=== PATIENT | female | born 1990 | race African-American/Black ===

== ENCOUNTER 2018-06-15 17:00 | Emergency (ER) | payer SELFPAY ==
[2018-06-15 17:18] VITALS: BP 145/80
--- NOTE | 2018-06-15 17:55 | EDM.PDOC ---
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 Patient is . Patient's menstrual cycle started on 06/02, prior to this her last period was on 05/08. Her menstrual periods typically last 7-8 days, this period has lasted 14 days. She has had more clots than usual with this period. She describes the blood as bright red with dark red clots. She has had a lot of pain with this period, whereas she typically does not experience cramping with her periods. She describes the pain as cramping, sharp, 8/10, and primarily on the right side. Patient has tried taking tylenol, ibuprofen, and pamprin but none of these have helped. Nothing improves or worsens the pain. Associated symptoms include back pain. Patient last had sexual intercourse a few days before her menstrual cycle started. They used a condom, but it broke. Patient denies weakness, nausea, vomiting, or syncope. 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, NSAIDS Lower Back Pain Score (Numeric/FACES): 8 - Related Data Allergies Allergy/AdvReac Type Severity Reaction Status Date / Time No Known Allergies Allergy Verified 06/15/18 17:09 Home Meds: Home Meds Ferrous Sulfate 325 mg PO DAILY #30 tablet 06/15/18 [Rx] medroxyPROGESTERone [Provera] 10 mg PO BID #10 tab 06/15/18 [Rx] Past Medical History - Past Health History Medical/Surgical History: Denies Medical/Surgical History 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: Reports: Fibroids, 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: Musculoskeletal History: Reports: Back Pain, Chronic Social & Family History - Family History Family Medical History: Noncontributory Cardiac: Reports: Hypertension OBGYN: Reports: Dysfunctional uterine bleeding Endocrine/Metabolic: Reports: Diabetes, type II Oncologic: Reports: Breast - Tobacco Use Smoking Status *Q: Current Every Day Smoker Years of Tobacco use: 4 Packs/Tins Daily: 0.2 - Caffeine Use Caffeine Use: Reports: Soda - Recreational Drug Use Recreational Drug Use: No ED ROS GENERAL - Review of Systems Review Of Systems: See Below Constitutional: Reports: No Symptoms Respiratory: Reports: No Symptoms Cardiovascular: Reports: No Symptoms GI/Abdominal: Reports: Abdominal Pain (RUQ/RLQ pain) : Reports: Pain. Denies: Frequency, Urgency Musculoskeletal: Reports: Back Pain Neurological: Denies: Confusion, Dizziness, Syncope ED EXAM, GI/ABD - Physical Exam Exam: See Below Exam Limited By: No Limitations General Appearance: Alert, WD/WN, No Apparent Distress Respiratory/Chest: No Respiratory Distress, Lungs Clear, Normal Breath Sounds, No Accessory Muscle Use, Chest Non-Tender Cardiovascular: Normal Peripheral Pulses, Regular Rate, Rhythm, No Edema, No Gallop, No Murmur, No Rub GI/Abdominal Exam: Normal Bowel Sounds, Soft, Non-Tender, No Distention. No: Guarding, Rigid, Rebound Course - Vital Signs Last Recorded V/S: Last Vital Signs Temp 97.2 F 06/15/18 17:09 Pulse 102 H 06/15/18 17:09 Resp 18 06/15/18 17:09 BP 145/80 H 06/15/18 17:09 Pulse Ox 99 06/15/18 17:09 Orthostatic Blood Pressure [ 136/95 Standing] Orthostatic Blood Pressure [ 144/93 Sitting] Orthostatic Blood Pressure [ 142/82 Supine] - Orders/Labs/Meds Labs: Laboratory Tests 06/15/18 06/15/18 06/15/18 Range/Units 17:45 17:53 17:53 WBC 10.35 H (3.98-10.04) K/mm3 RBC 4.78 (3.98-5.22) M/mm3 Hgb 11.0 L (11.2-15.7) gm/L Hct 34.7 (34.1-44.9) % MCV 72.6 L (79.4-94.8) fl MCH 23.0 L (25.6-32.2) pg MCHC 31.7 L (32.2-35.5) g/dl RDW Std Deviation 47.7 H (36.4-46.3) fL Plt Count 421 H (182-369) K/mm3 MPV 9.6 (9.4-12.3) fl Neutrophils % (Manual) 48 (40-60) % Band Neutrophils % 0 (0-10) % Lymphocytes % (Manual) 48 H (20-40) % Atypical Lymphs % 0 % Monocytes % (Manual) 3 (2-10) % Eosinophils % (Manual) 1 (0.7-5.8) % Basophils % (Manual) 0 L (0.1-1.2) Platelet Estimate Adequate Plt Morphology Comment Normal Anisocytosis 1+ slight Microcytosis 2+ moderate RBC Morph Comment Not Reportable HCG, Qual Negative (NEGATIVE) Urine Color Dark yellow (Yellow) Urine Appearance Cloudy H (Clear) Urine pH 6.0 (5.0-8.0) Ur Specific [place] > or = 1.030 (1.005-1.030) Urine Protein 2+ H (Negative) Urine Glucose (UA) Negative (Negative) Urine Ketones Trace H (Negative) Urine Occult Blood 3+ H (Negative) Urine Nitrite Negative (Negative) Urine Bilirubin 1+ H (Negative) Urine Urobilinogen 0.2 (0.2-1.0) Ur Leukocyte Esterase Negative (Negative) Urine RBC >100 H (0-5) /hpf Urine WBC 0-5 (0-5) /hpf Ur Epithelial Cells 0-5 (0-5) /hpf Urine Bacteria Not seen (FEW) /hpf Urine Mucus Not seen (FEW) /hpf Meds: Medications Discontinued Medications Generic Name Dose Route Start Last Admin Trade Name Gokul PRN Reason Stop Dose Admin Ketorolac Tromethamine 60 mg 06/15/18 18:49 06/15/18 18:57 Toradol IM 06/15/18 18:50 60 mg ONETIME ONE Administration Departure - Departure Disposition: Home, Self-Care 01 Clinical Impression: Dysfunctional uterine bleeding - Discharge Information Prescriptions: Ferrous Sulfate 325 mg PO DAILY #30 tablet medroxyPROGESTERone [Provera] 10 mg PO BID #10 tab Instructions: Dysfunctional Uterine Bleeding Referrals: PCP,None [Primary Care Provider] - Malachi Espinoza MD [Physician] - Forms: ED Department Discharge Additional Instructions: [id number] Tylenol or Motrin as needed for pain relief. He may take up to 4 g of Tylenol in 1 day. May take up to 3200 mg of ibuprofen and 1 day. Take the Provera 1 tab twice a day for 5 days. Follow-up with Dr. Espinoza, METAL FURNITURE POLISHER, within the next week for recheck of your symptoms. Further treatment to be determined by him. Call [phone] to schedule with him. Take the iron 1 tab daily. Recommend taking this with citric fruits to help with absorption or take vitamin C, available [id number]. Iron can cause constipation. Recommend MiraLAX daily or every other day for normal bowel maintenance if this becomes a problem for you. alos expect your stools to be dark or black while on iron. Please return to the ER if your symptoms change or worsen. <Eufemia Salazar - Last Filed: 06/18/18 14:09> ED HPI GENERAL MEDICAL PROBLEM - History of Present Illness INITIAL COMMENTS - FREE TEXT/NARRATIVE: I have seen the patient and agree with the HPI as documented by LILY Ziegler. ED EXAM, GI/ABD - Physical Exam (Female) Exam: Normal External Exam, Normal Speculum Exam, Vaginal Bleeding Neurological: Alert, Oriented, Normal Cognition Psychiatric: Normal Affect, Normal Mood Skin Exam: Warm, Dry, Normal Color Course - Re-Assessments/Exams Free Text/Narrative Re-Assessment/Exam: 06/15/18 18:50 I have seen the patient and agree with the HPI, ROS and PE as documented by LILY Ziegler Pelvic exam preformed by myself. Other than vaginal bleeding no other abnormalities identified. Case discussed with Dr. Espinoza, Ob eight section blower. Recommended provera 10mg bid x 10 days. He will see her in the clinic within the week to determine further management. Discussed with the patient. She is in agreement and understanding. Discharge instructions as documented. Departure - Departure Time of Disposition: 18:56 Condition: Fair - Discharge Information *PRESCRIPTION DRUG MONITORING PROGRAM REVIEWED*: No *COPY OF PRESCRIPTION DRUG MONITORING REPORT IN PATIENT MORELIA: No
[2018-06-15] MEDS ORDERED: Ketorolac 60 MG/2 ML SDV IM ONE (18:49)
== END 2018-06-15 19:18 | disposition home or self-care (01) ==
LOC: JD.ED 17:00
DX: N93.8 Other specified abnormal uterine and vaginal bleeding (principal); F17.210 Nicotine dependence, cigarettes, uncomplicated
CPT/HCPCS: 36415; 81001; 84703; 85007; 85027; 96372; 99284; J1885

== ENCOUNTER 2020-03-05 10:45 | Emergency (ER) | payer MEDICAID ==
[2020-03-05 11:03] VITALS: BP 140/95; PULSE 88
[2020-03-05] MEDS ORDERED: Ondansetron 4 MG/2 ML SDV IVPUSH ONE (11:17)
--- NOTE | 2020-03-05 11:23 | EDM.PDOC ---
ED HPI GENERAL MEDICAL PROBLEM - General Chief Complaint: Abdominal Pain Stated Complaint: ABDOMINAL PAIN/DIARRHEA Time Seen by Provider: 03/05/20 11:02 Source of Information: Reports: Patient, RN Notes Reviewed History Limitations: Reports: No Limitations - History of Present Illness INITIAL COMMENTS - FREE TEXT/NARRATIVE: Patient is a 29-year-old female who presents to the ED for the evaluation of some lower abdominal pain and diarrhea. The patient states that this started roughly 2 days ago, she has noticed 3 diarrhea type stools a day, and notes that it is quite watery. Patient states she has some hot flashes at times, but has not had a fever at home, and she remains afebrile at time of triage, her temperature is 97.2 F. The patient notes she is a diabetic, and has not been able to take her metformin in around 1 week. She states that she just refilled it the other day, and has not taken it since. She takes 1000 mg 3 times a day. The patient states that she is not having any chest pain, shortness of breath , cough, nausea or vomiting. Patient notes that the pain does come and go, she cannot really relate any modifiers to make it worse or better. Patient is not sure she can be , and states she cannot remember when her last period was, but relates she usually is regular. Patient's primary care provider is iLza Bush from [place]. 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 SCIENTIST History: Musculoskeletal History: Reports: Back Pain, Chronic Endocrine/Metabolic History: Reports: Diabetes, Type II, Obesity/BMI 30+ Hematologic History: Reports: Anemia - Infectious Disease History Infectious Disease History: Reports: Chicken Pox, Measles Social & Family History - Family History Family Medical History: Noncontributory Cardiac: Reports: Hypertension OBGYN: Reports: Dysfunctional uterine bleeding Endocrine/Metabolic: Reports: Diabetes, type II Oncologic: Reports: Breast - Tobacco Use Smoking Status *Q: Current Every Day Smoker Years of Tobacco use: 9 Packs/Tins Daily: 0.5 - Caffeine Use Caffeine Use: Reports: Soda - Living Situation & Occupation Living situation: Reports: Single, Other (with a friend) 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 Denies: Fever, Chills, Malaise, Weakness, Fatigue, Decreased Appetite, Weight Loss Respiratory: Denies: Shortness of Breath, Cough Cardiovascular: Denies: Chest Pain GI/Abdominal: Reports: Abdominal Pain (Low left abdomen pain), Diarrhea (3 watery stools/day). Denies: Nausea, Vomiting : Denies: Discharge, Dysuria, Frequency, Urgency ED EXAM, GI/ABD - Physical Exam Exam: See Below Exam Limited By: No Limitations General Appearance: Alert, WD/WN, No Apparent Distress Eyes: Bilateral: Normal Appearance Ears: Normal External Exam Nose: Normal Inspection Throat/Mouth: Normal Inspection, Normal Lips, Normal Teeth, Normal Gums, Normal Oropharynx, Normal Voice, No Airway Compromise Head: Atraumatic, Normocephalic Neck: Normal Inspection Respiratory/Chest: No Respiratory Distress, Lungs Clear, Normal Breath Sounds, No Accessory Muscle Use, Chest Non-Tender Cardiovascular: Normal Peripheral Pulses, Regular Rate, Rhythm, No Murmur GI/Abdominal Exam: Normal Bowel Sounds, Soft, Non-Tender, No Distention, No Mass Extremities: Normal Inspection, Normal Capillary Refill Neurological: Alert, Oriented, Normal Cognition, No Motor/Sensory Deficits Psychiatric: Normal Affect, Normal Mood Skin Exam: Warm, Dry, Intact, Normal Color, No Rash Course - Vital Signs Last Recorded V/S: Last Vital Signs Temp 97.2 F 03/05/20 10:59 Pulse 88 03/05/20 10:59 Resp 16 03/05/20 10:59 BP 140/95 H 03/05/20 10:59 Pulse Ox 100 03/05/20 10:59 - Orders/Labs/Meds Orders: Active Orders 24 hr Category Date Time Status Sodium Chloride 0.9% [Normal Saline] 1,000 ml Med 03/05/20 11:30 Active IV ASDIRECTED Medication Orders Sodium Chloride (Normal Saline) 1,000 mls @ 999 mls/hr IV ASDIRECTED SALLY Last Admin: 03/05/20 11:36 Dose: 999 mls/hr Labs: Laboratory Tests 03/05/20 03/05/20 03/05/20 Range/Units 11:23 11:23 11:30 WBC 9.91 (3.98-10.04) K/mm3 RBC 5.41 H (3.98-5.22) M/mm3 Hgb 12.6 (11.2-15.7) gm/dl Hct 39.9 (34.1-44.9) % MCV 73.8 L (79.4-94.8) fl MCH 23.3 L (25.6-32.2) pg MCHC 31.6 L (32.2-35.5) g/dl RDW Std Deviation 49.6 H (36.4-46.3) fL Plt Count 395 H (182-369) K/mm3 MPV 10.2 (9.4-12.3) fl Neutrophils % (Manual) 54 (40-60) % Band Neutrophils % 0 (0-10) % Lymphocytes % (Manual) 33 (20-40) % Atypical Lymphs % 0 % Monocytes % (Manual) 10 (2-10) % Eosinophils % (Manual) 3 (0.7-5.8) % Basophils % (Manual) 0 L (0.1-1.2) Nucleated RBCs 1.0 % Platelet Estimate Adequate Anisocytosis 2+ moderate Microcytosis 2+ moderate RBC Morph Comment Abnormal Sodium (136-145) mEq/L Potassium (3.5-5.1) mEq/L Chloride (98-107) mEq/L Carbon Dioxide (21-32) mEq/L Anion Gap (5-15) BUN (7-18) mg/dL Creatinine (0.55-1.02) mg/dL Est Cr Clr Drug Dosing mL/min Estimated GFR (MDRD) (>60) mL/min BUN/Creatinine Ratio (14-18) Glucose (74-106) mg/dL Calcium (8.5-10.1) mg/dL Total Bilirubin (0.2-1.0) mg/dL AST (15-37) U/L ALT (14-59) U/L Alkaline Phosphatase (46-116) U/L Total Protein (6.4-8.2) g/dl Albumin (3.4-5.0) g/dl Globulin gm/dL Albumin/Globulin Ratio (1-2) Urine Color Yellow (Yellow) Urine Appearance Clear (Clear) Urine pH 7.0 (5.0-8.0) Ur Specific [place] > or = 1.030 (1.005-1.030) Urine Protein Negative (Negative) Urine Glucose (UA) Negative (Negative) Urine Ketones Negative (Negative) Urine Occult Blood 2+ H (Negative) Urine Nitrite Negative (Negative) Urine Bilirubin Negative (Negative) Urine Urobilinogen 0.2 (0.2-1.0) Ur Leukocyte Esterase Negative (Negative) Urine RBC 0-5 (0-5) /hpf Urine WBC 0-5 (0-5) /hpf Ur Epithelial Cells 10-20 H (0-5) /hpf Urine Bacteria Few (FEW) /hpf Urine Mucus Few (FEW) /hpf Urine HCG, Qual Negative (NEGATIVE) 03/05/20 Range/Units 11:30 WBC (3.98-10.04) K/mm3 RBC (3.98-5.22) M/mm3 Hgb (11.2-15.7) gm/dl Hct (34.1-44.9) % MCV (79.4-94.8) fl MCH (25.6-32.2) pg MCHC (32.2-35.5) g/dl RDW Std Deviation (36.4-46.3) fL Plt Count (182-369) K/mm3 MPV (9.4-12.3) fl Neutrophils % (Manual) (40-60) % Band Neutrophils % (0-10) % Lymphocytes % (Manual) (20-40) % Atypical Lymphs % % Monocytes % (Manual) (2-10) % Eosinophils % (Manual) (0.7-5.8) % Basophils % (Manual) (0.1-1.2) Nucleated RBCs % Platelet Estimate Anisocytosis Microcytosis RBC Morph Comment Sodium 138 (136-145) mEq/L Potassium 4.4 (3.5-5.1) mEq/L Chloride 104 (98-107) mEq/L Carbon Dioxide 26 (21-32) mEq/L Anion Gap 12.4 (5-15) BUN 13 (7-18) mg/dL Creatinine 0.8 (0.55-1.02) mg/dL Est Cr Clr Drug Dosing 90.41 mL/min Estimated GFR (MDRD) > 60 (>60) mL/min BUN/Creatinine Ratio 16.3 (14-18) Glucose 91 (74-106) mg/dL Calcium 9.1 (8.5-10.1) mg/dL Total Bilirubin 0.2 (0.2-1.0) mg/dL AST 13 L (15-37) U/L ALT 20 (14-59) U/L Alkaline Phosphatase 66 (46-116) U/L Total Protein 7.6 (6.4-8.2) g/dl Albumin 3.0 L (3.4-5.0) g/dl Globulin 4.6 gm/dL Albumin/Globulin Ratio 0.7 L (1-2) Urine Color (Yellow) Urine Appearance (Clear) Urine pH (5.0-8.0) Ur Specific [place] (1.005-1.030) Urine Protein (Negative) Urine Glucose (UA) (Negative) Urine Ketones (Negative) Urine Occult Blood (Negative) Urine Nitrite (Negative) Urine Bilirubin (Negative) Urine Urobilinogen (0.2-1.0) Ur Leukocyte Esterase (Negative) Urine RBC (0-5) /hpf Urine WBC (0-5) /hpf Ur Epithelial Cells (0-5) /hpf Urine Bacteria (FEW) /hpf Urine Mucus (FEW) /hpf Urine HCG, Qual (NEGATIVE) Meds: Medications Generic Name Dose Route Start Last Admin Trade Name Freq PRN Reason Stop Dose Admin Sodium Chloride 1,000 mls @ 999 mls/hr 03/05/20 11:30 03/05/20 11:36 Normal Saline IV 999 mls/hr ASDIRECTED SALLY Administration Discontinued Medications Generic Name Dose Route Start Last Admin Trade Name Freq PRN Reason Stop Dose Admin Acetaminophen 650 mg 03/05/20 12:13 03/05/20 12:45 Tylenol PO 03/05/20 12:14 650 mg NOW ONE Administration Ondansetron HCl 4 mg 03/05/20 11:17 03/05/20 11:36 Zofran IVPUSH 03/05/20 11:18 4 mg ONETIME ONE Administration - Re-Assessments/Exams Free Text/Narrative Re-Assessment/Exam: 03/05/20 11:22 Patient presents to the ED for her lower abdominal pain and associated diarrhea. I have ordered some labs, and I will get flat and upright abdomens after we know that she is not . Patient will be given some IV fluids and 4 mg Zofran for initial management. 03/05/20 12:22 The labs have come back and are essentially within normal limits. The patient is not and the X-ray does appear to be within normal limits. Official radiology reading is pending. Will re-assess after the fluids and have the patient start taking her metformin as prescribed. She will likely be discharge with general recommendations. 03/05/20 12:42 X-ray has come back and nothing acute is appreciated on either film. Departure - Departure Time of Disposition: 12:42 Disposition: Home, Self-Care 01 Condition: Good Clinical Impression: Lower abdominal pain Diarrhea Qualifiers: Diarrhea type: unspecified type Qualified Code(s): R19.7 - Diarrhea, unspecified - Discharge Information *PRESCRIPTION DRUG MONITORING PROGRAM REVIEWED*: No *COPY OF PRESCRIPTION DRUG MONITORING REPORT IN PATIENT MORELIA: No Instructions: Food Choices to Help Relieve Diarrhea, Adult, Diarrhea, Adult, [id number] Referrals: Liza Bush PA-C [Primary Care Provider] - Forms: ED Department Discharge, ED Return to Work/School Form Additional Instructions: You have been evaluated in the ED for diarrhea/lower abdominal pain. Laboratory evaluation in the ED demonstrates that there are no focal or worrisome abnormalities. You have received IV fluid in the ED to help with the dehydration from the diarrhea. Over the next 24-48 hours please try to limit diet to clear liquids and advance as tolerate to a bland diet to alleviate symptoms of diarrhea. Recommend you resume taking your Metformin as previously prescribed, and follow up with your primary care provider some time this week if symptoms do not seem to improving. Please return to the ED if your symptoms should change or worsen. Sepsis Event Note - Evaluation Sepsis Screening Result: No Definite Risk - Focused Exam Vital Signs: Vital Signs Temp Pulse Resp BP Pulse Ox 03/05/20 10:59 97.2 F 88 16 140/95 H 100 Date Exam was Performed: 03/05/20 Time Exam was Performed: 13:04 - My Orders Last 24 Hours: My Active Orders 03/05/20 11:30 Sodium Chloride 0.9% [Normal Saline] 1,000 ml IV ASDIRECTED - Assessment/Plan Last 24 Hours: My Active Orders 03/05/20 11:30 Sodium Chloride 0.9% [Normal Saline] 1,000 ml IV ASDIRECTED
[2020-03-05] MEDS ORDERED: Sodium Chloride 0.9% 1,000 ML IV SCH (11:30)
[2020-03-05] MEDS ORDERED: Acetaminophen 325 MG Tab PO ONE (12:13)
--- NOTE | 2020-03-05 12:28 | CR ---
Abdomen: Supine and upright views the abdomen were obtained. Comparison: Prior abdominal x-ray of 02/27/16. Bowel gas pattern appears normal. No abnormal calcifications or soft tissue abnormality is appreciated. Bony structures are unremarkable. Impression: 1. Nothing acute is appreciated on 2 view abdominal x-ray. Diagnostic code #1 Study was dictated in MDT
== END 2020-03-05 13:06 | disposition home or self-care (01) ==
LOC: JD.ED 10:45
DX: R10.30 Lower abdominal pain, unspecified (principal); R19.7 Diarrhea, unspecified; I10 Essential (primary) hypertension; E11.9 Type 2 diabetes mellitus without complications; E66.9 Obesity, unspecified; Z68.43 Body mass index [BMI] 50.0-59.9, adult; Z79.84 Long term (current) use of oral hypoglycemic drugs
CPT/HCPCS: 36415; 74019; 80053; 81001; 81025; 85007; 85027; 96361; 96374; 99284; A9270; J2405; J7030; 99283

== ENCOUNTER 2020-04-25 01:27 | Emergency (ER) | payer MEDICAID ==
[2020-04-25 01:35] VITALS: BP 127/81; PULSE 110
[2020-04-25] MEDS ORDERED: EPINEPHrine 1 MG/ML SDV IM ONE (01:36)
[2020-04-25] MEDS ORDERED: methylPREDNISolone Sodium Succinate 125 MG/2 ML SDV IVPUSH ONE (01:41)
--- NOTE | 2020-04-25 01:41 | EDM.PDOC ---
ED HPI GENERAL MEDICAL PROBLEM - General Chief Complaint: Allergic Reaction Stated Complaint: ALLERGIC REACTION Time Seen by Provider: 04/25/20 01:32 - History of Present Illness INITIAL COMMENTS - FREE TEXT/NARRATIVE: 29-year-old female presents the emergency room with facial swelling lip swelling tongue swelling and a generalized rash. This started just after midnight and is progressively gotten worse. The patient is not aware of what she got exposed to. Patient has had 2 reactions like this in the past. Unknown what triggered these. Patient's past medical history significant for hypertension but no coronary artery disease. She has no history of angioedema. Patient states that when this worsened she had a unusual feeling in her stomach she has a hard time describing this. She has had no nausea vomiting or diarrhea - Related Data Allergies Allergy/AdvReac Type Severity Reaction Status Date / Time No Known Allergies Allergy Verified 04/25/20 01:35 Home Meds: Home Meds medroxyPROGESTERone Acetate [Depo-Provera] 150 mg IM ASDIRECTED 07/11/19 [ History] metFORMIN [Glucophage] 1,000 mg PO DAILY 07/11/19 [History] Ibuprofen 800 mg PO TID #15 tablet 10/07/19 [Rx] predniSONE [Prednisone] 40 mg PO QAM #10 tablet 04/25/20 [Rx] Past Medical History - Past Health History Medical/Surgical History: Denies Medical/Surgical History HEENT History: Reports: Otitis Media Cardiovascular History: Reports: Hypertension Respiratory History: Reports: None Gastrointestinal History: Reports: None Genitourinary History: Reports: UTI, Recurrent 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 Hematologic History: Reports: Anemia Immunologic History: Reports: None Oncologic (Cancer) History: Reports: None Dermatologic History: Reports: None - Infectious Disease History Infectious Disease History: Reports: Chicken Pox, Measles Social & Family History - Family History Family Medical History: Noncontributory Cardiac: Reports: Hypertension OBGYN: Reports: Dysfunctional uterine bleeding Endocrine/Metabolic: Reports: Diabetes, type II Oncologic: Reports: Breast - Caffeine Use Caffeine Use: Reports: Soda - Living Situation & Occupation Living situation: Reports: Single, Other (with a friend) 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 Denies: Fever, Chills HEENT: Reports: Other (Facial swelling see history of present illness) Respiratory: Reports: No Symptoms Cardiovascular: Reports: No Symptoms Endocrine: Reports: No Symptoms GI/Abdominal: Reports: Other (Shortly before arrival she had an unusual feeling in her stomach no nausea vomiting constipation or diarrhea) : Reports: No Symptoms Musculoskeletal: Reports: No Symptoms Skin: Reports: No Symptoms Neurological: Reports: No Symptoms Psychiatric: Reports: No Symptoms Immunologic: Reports: Other (She is having a reaction at this time) ED EXAM GENERAL NO PERIP PULSE - Physical Exam Exam: See Below Exam Limited By: No Limitations General Appearance: Other (The patient is having marked facial swelling lip swelling and tongue swelling, I have asked her to stick her tongue out and it is quite swollen I cannot see any of the pharynx structures) Eye Exam: Bilateral Eye: Other (Upper and lower are moderately swollen bilaterally) Ears: Hearing Grossly Normal, Normal TMs, Other (External ears quite swollen canal is minimally swollen earlobe is markedly swollen) Nose: Other (External swelling) Throat/Mouth: Other (Initially the uvula could not be visualized the tongue was markedly swollen. After single dose of epinephrine the tongue was at least half its original size uvula well seen posterior structures in the throat looked normal) Neck: Normal Inspection, Supple, Non-Tender. No: Lymphadenopathy (L), Lymphadenopathy (R) Respiratory/Chest: No Respiratory Distress, Lungs Clear, Respiratory Distress Cardiovascular: Regular Rate, Rhythm, No Edema, No Murmur GI/Abdominal: Normal Bowel Sounds, Soft, Non-Tender, Other Course - Vital Signs Last Recorded V/S: Last Vital Signs Temp 36.6 C 04/25/20 01:33 Pulse 110 H 04/25/20 01:33 Resp 16 04/25/20 01:33 BP 127/81 04/25/20 01:33 Pulse Ox 96 04/25/20 01:33 - Orders/Labs/Meds Meds: Medications Discontinued Medications Generic Name Dose Route Start Last Admin Trade Name Freq PRN Reason Stop Dose Admin Epinephrine HCl 0.5 mg 04/25/20 01:36 04/25/20 01:40 Adrenalin IM 04/25/20 01:37 0.5 mg ONETIME ONE Administration Famotidine 40 mg 04/25/20 01:43 04/25/20 01:50 Pepcid IVPUSH 04/25/20 01:44 40 mg ONETIME ONE Administration Methylprednisolone Sodium Succinate 125 mg 04/25/20 01:41 04/25/20 01:49 Solu-Medrol IVPUSH 04/25/20 01:42 125 mg ONETIME ONE Administration - Re-Assessments/Exams Free Text/Narrative Re-Assessment/Exam: 04/25/20 01:58 Initially the patient was given a round of epinephrine I did not feel she was in a true anaphylactic reaction her pulse was a little fast but she was maintaining good blood pressure however is more concerned about maintaining the upper airway. After receiving single round of epinephrine her tongue shrink considerably her tongue lips shrink considerably the posterior structures in the throat were identified and easily seen whereas prior to the epinephrine they could not be visualized. Patient has IV established at this point she is received 40 mg of IV famotidine 125 Solu-Medrol she took 50 mg of Benadryl before coming in 04/25/20 04:41 Continued observation, the patient has done very well and continued to improve she is at or near baseline at this time. We will discharge her on oral prednisone famotidine and Benadryl Departure - Departure Time of Disposition: 04:42 Disposition: Home, Self-Care 01 Clinical Impression: Allergic reaction - Discharge Information Referrals: PCP,Unknown [Ordering Only Provider] - Forms: ED Department Discharge Additional Instructions: Return to the emergency room with any questions problems or worsening symptoms. Take the prednisone as directed starting this morning when you get it filled. Start famotidine, or Pepcid, 20 mg twice daily for at least 7 days. This is lydk-usc-orygrog Use Benadryl 25 mg every 6 hours today and after today only if needed every 6 hours. Follow-up with your regular provider at [facility] in approximately 1 week and discuss the possible need for allergy testing since you have had 2 other episodes like this in the past. Sepsis Event Note - Focused Exam Vital Signs: Vital Signs Temp Pulse Resp BP Pulse Ox 04/25/20 01:33 36.6 C 110 H 16 127/81 96 Date Exam was Performed: 04/25/20 Time Exam was Performed: 04:41
[2020-04-25] MEDS ORDERED: Famotidine 20 MG/2 ML SDV IVPUSH ONE (01:43)
== END 2020-04-25 05:03 | disposition home or self-care (01) ==
LOC: JD.ED 01:27
DX: T78.40XA Allergy, unspecified, initial encounter (principal); E11.9 Type 2 diabetes mellitus without complications; I10 Essential (primary) hypertension; Z79.84 Long term (current) use of oral hypoglycemic drugs; E66.9 Obesity, unspecified; Z68.42 Body mass index [BMI] 45.0-49.9, adult
CPT/HCPCS: 96372; 96374; 96375; 99283; J0171; J2930; J3490

== ENCOUNTER 2020-10-01 13:07 | Emergency (ER) | payer MEDICAID ==
[2020-10-01 14:15] VITALS: BP 124/84; PULSE 93
--- NOTE | 2020-10-01 15:51 | EDM.PDOC ---
ED HPI GENERAL MEDICAL PROBLEM - General Chief Complaint: Headache Stated Complaint: HEAD ACHE/VAGINAL BLEEDING Time Seen by Provider: 10/01/20 14:55 Source of Information: Reports: Patient, RN Notes Reviewed History Limitations: Reports: Intoxication - History of Present Illness INITIAL COMMENTS - FREE TEXT/NARRATIVE: Patient is a 29-year-old female presenting to the emergency department with complaints of intermittent headaches over the course the last few days as well as vaginal bleeding and cramping in light of a positive test. Her last menstrual period was at the beginning of August. She states she has been having these intermittent headaches over the last few days and states that she "did not feel right" so she took a test yesterday. The result came back positive. Last evening she started having some vaginal bleeding which she describes as dark brown in color and light. She describes what looks like small blood clots in the discharge. 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 She has had some intermittent nausea but denies vomiting. Treatments LUNCH WAGON OPERATOR: Reports: Other (see below) Other Treatments LUNCH WAGON OPERATOR: tylenol Bilateral Temporal Headache Pain Score (Numeric/FACES): 6 - Related Data Allergies Allergy/AdvReac Type Severity Reaction Status Date / Time No Known Allergies Allergy Verified 04/25/20 01:35 Home Meds: Home Meds metFORMIN [Glucophage] 1,000 mg PO DAILY 07/11/19 [History] Doxepin [SINEquan] 50 mg PO BEDTIME 10/01/20 [History] Metoprolol Tartrate 25 mg PO DAILY 10/01/20 [History] Past Medical History - Past Health History Medical/Surgical History: Denies Medical/Surgical History HEENT History: Reports: Otitis Media Cardiovascular History: Reports: Hypertension Respiratory History: Reports: None Gastrointestinal History: Reports: None Genitourinary History: Reports: UTI, Recurrent PANEL FITTER History: Reports: Fibroids, Other PANEL FITTER History: Musculoskeletal History: Reports: Back Pain, Chronic Neurological History: Reports: None Psychiatric History: Reports: None Endocrine/Metabolic History: Reports: Diabetes, Type II, Obesity/BMI 30+ Other Endocrine/Metabolic History: states is "pre" diabetic. Hematologic History: Reports: Anemia Immunologic History: Reports: None Oncologic (Cancer) History: Reports: None Dermatologic History: Reports: None - Infectious Disease History Infectious Disease History: Reports: Chicken Pox, Measles Social & Family History - Family History Family Medical History: Noncontributory Cardiac: Reports: Hypertension OBGYN: Reports: Dysfunctional uterine bleeding Endocrine/Metabolic: Reports: Diabetes, type II Oncologic: Reports: Breast - Tobacco Use Tobacco Use Status *Q: Current Every Day Tobacco User Years of Tobacco use: 5 Packs/Tins Daily: 0.4 - Caffeine Use Caffeine Use: Reports: Soda, Tea - Recreational Drug Use Recreational Drug Use: No - Living Situation & Occupation Living situation: Reports: Single, Other (with a friend) 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 Denies: Fever, Chills, Weakness HEENT: Reports: No Symptoms Respiratory: Reports: No Symptoms. Denies: Shortness of Breath, Cough Cardiovascular: Reports: No Symptoms Endocrine: Reports: No Symptoms GI/Abdominal: Reports: Nausea. Denies: Abdominal Pain, Diarrhea, Vomiting : Reports: Pain (Pelvic cramping), Other (Brownish vaginal bleeding) Musculoskeletal: Reports: No Symptoms Skin: Reports: No Symptoms Neurological: Reports: Headache Psychiatric: Reports: No Symptoms Hematologic/Lymphatic: Reports: No Symptoms Immunologic: Reports: No Symptoms ED EXAM, GENERAL - Physical Exam Exam: See Below Exam Limited By: No Limitations General Appearance: Alert, WD/WN, No Apparent Distress Respiratory/Chest: No Respiratory Distress, Lungs Clear, Normal Breath Sounds, No Accessory Muscle Use, Chest Non-Tender Cardiovascular: Normal Peripheral Pulses, Regular Rate, Rhythm, No Edema, No Gallop, No JVD, No Murmur, No Rub GI/Abdominal: Normal Bowel Sounds, Soft, Non-Tender, No Organomegaly, No Distention, No Abnormal Bruit, No Mass Neurological: Alert, Oriented, CN II-XII Intact, Normal Cognition, Normal Gait, Normal Reflexes, No Motor/Sensory Deficits Psychiatric: Normal Affect, Normal Mood Skin Exam: Warm, Dry, Intact, Normal Color, No Rash Course - Vital Signs Last Recorded V/S: Last Vital Signs Temp 97.6 F 10/01/20 14:11 Pulse 93 10/01/20 14:11 Resp 20 10/01/20 14:11 BP 124/84 10/01/20 14:11 Pulse Ox 96 10/01/20 14:11 - Orders/Labs/Meds Orders: Active Orders 24 hr Category Date Time Status OB Transvaginal [US] Stat Exams 10/01/20 16:31 Taken Labs: Laboratory Tests 10/01/20 10/01/20 10/01/20 Range/Units 15:30 15:30 15:30 WBC 9.72 (3.98-10.04) K/mm3 RBC 5.10 (3.98-5.22) M/mm3 Hgb 12.3 (11.2-15.7) gm/dl Hct 38.9 (34.1-44.9) % MCV 76.3 L (79.4-94.8) fl MCH 24.1 L (25.6-32.2) pg MCHC 31.6 L (32.2-35.5) g/dl RDW Std Deviation 45.1 (36.4-46.3) fL Plt Count 425 H (182-369) K/mm3 MPV 9.7 (9.4-12.3) fl Neut % (Auto) 55.2 (34.0-71.1) % Lymph % (Auto) 38.1 (19.3-51.7) % [place] % (Auto) 4.9 (4.7-12.5) % Eos % (Auto) 1.0 (0.7-5.8) Baso % (Auto) 0.6 (0.1-1.2) % Neut # (Auto) 5.36 (1.56-6.13) K/mm3 Lymph # (Auto) 3.70 (1.18-3.74) K/mm3 [place] # (Auto) 0.48 H (0.24-0.36) K/mm3 Eos # (Auto) 0.10 (0.04-0.36) K/mm3 Baso # (Auto) 0.06 (0.01-0.08) K/mm3 Sodium 137 (136-145) mEq/L Potassium 4.6 (3.5-5.1) mEq/L Chloride 102 (98-107) mEq/L Carbon Dioxide 29 (21-32) mEq/L Anion Gap 10.6 (5-15) BUN 12 (7-18) mg/dL Creatinine 0.9 (0.55-1.02) mg/dL Est Cr Clr Drug Dosing 80.36 mL/min Estimated GFR (MDRD) > 60 (>60) mL/min BUN/Creatinine Ratio 13.3 L (14-18) Glucose 95 (74-106) mg/dL Calcium 8.9 (8.5-10.1) mg/dL Total Bilirubin 0.3 (0.2-1.0) mg/dL AST 12 L (15-37) U/L ALT 21 (14-59) U/L Alkaline Phosphatase 72 (46-116) U/L C-Reactive Protein 2.7 H* (<1.0) mg/dL Total Protein 7.9 (6.4-8.2) g/dl Albumin 3.4 (3.4-5.0) g/dl Globulin 4.5 gm/dL Albumin/Globulin Ratio 0.8 L (1-2) HCG, Quant 34.0 mIU/mL Blood Type O POSITIVE - Re-Assessments/Exams Free Text/Narrative Re-Assessment/Exam: Patient is a 29-year-old female presenting to the emergency department with complaints of intermittent headaches over the last few days with a positive test and vaginal bleeding/spotting that started last evening. She reports her last menstrual period started at the beginning of August. She is normally regular with her periods. I have ordered CBC, CMP, CRP, quantitative hCG, if her hCG come back elevated. We will pursue a transvaginal ultrasound. 10/01/20 18:56 Hematology was significant for CRP minimally elevated at 2.7 and a quantitative hCG of 34. Transvaginal ultrasound was completed and showed a endometrium is thickened measuring, 15 mm. There is no evidence of intrauterine gestation. Called and spoke with PANEL FITTER on-call, Dr. Govea. She recommended follow-up in the clinic to trend the hCG levels. Discussed this with the patient she is in agreement. I will send a referral to Dr. Govea. Discharge instructions as documented. Departure - Departure Time of Disposition: 18:59 Disposition: Home, Self-Care 01 Condition: Good Clinical Impression: Elevated serum hCG - Discharge Information *PRESCRIPTION DRUG MONITORING PROGRAM REVIEWED*: No *COPY OF PRESCRIPTION DRUG MONITORING REPORT IN PATIENT MORELIA: No Referrals: Liza Bush PA-C [Primary Care Provider] - Altagracia Govea MD [Physician] - Forms: ED Department Discharge Additional Instructions: You were seen in the emergency department today for intermittent headaches with a positive test followed by vaginal spotting. Your work-up included blood work, and an ultrasound of your pelvis. Results of your work-up showed your hCG was minimally elevated at 34. There is no evidence of intrauterine gestation on your pelvic ultrasound. Your case was consulted with Dr. Govea, PANEL FITTER. She is recommending that you follow-up with her in the clinic for ongoing management. The phone number to schedule with her as listed below. Recommend that you call tomorrow to set up an appointment. If you experience any new or worsening symptoms of concern, please not hesitate to return to the emergency department. Sepsis Event Note (ED) - Evaluation Sepsis Screening Result: No Definite Risk - Focused Exam Vital Signs: Vital Signs Temp Pulse Resp BP Pulse Ox 10/01/20 14:11 97.6 F 93 20 124/84 96 - My Orders Last 24 Hours: My Active Orders 10/01/20 16:31 OB Transvaginal [US] Stat - Assessment/Plan Last 24 Hours: My Active Orders 10/01/20 16:31 OB Transvaginal [US] Stat
--- NOTE | 2020-10-02 09:39 | US ---
PROCEDURE INFORMATION: Exam: US , Transvaginal Exam date and time: 10/01/2020 4:33 PM Age: 29 years old Clinical indication: Lmp or gestational age (in weeks): 4 weeks per patient; Antepartum complications; Bleeding; Patient HX: Hcg 34.0 at time of exam TECHNIQUE: Imaging protocol: Real-time transvaginal obstetrical ultrasound of the maternal pelvis and a first trimester with image documentation. Transvaginal imaging was used for better evaluation of the fetus, adnexa, and/or cervix. COMPARISON: US Transvaginal Non OB 09/04/2015 1:20 PM FINDINGS: Gestation: No intrauterine gestation appreciated. MATERNAL: Uterus: Endometrium is thickened, measuring 15 mm. Uterus is otherwise unremarkable. Right adnexa: Unremarkable appearance of the right ovary. Left adnexa: Left corpus luteal cyst. IMPRESSION: Endometrium is thickened, measuring 15 mm. However, no intrauterine gestation appreciated. Thank you for allowing us to participate in the care of your patient. Dictated and Authenticated by: Domenico Palencia MD 10/01/2020 6:50 PM Central Time ([place] & [place]) [place]
== END 2020-10-01 19:05 | disposition home or self-care (01) ==
LOC: JD.ED 13:07
DX: O02.81 Inappropriate change in quantitative human chorionic gonadotropin (hCG) in early pregnancy (principal); O99.281 Endocrine, nutritional and metabolic diseases complicating pregnancy, first trimester; E11.9 Type 2 diabetes mellitus without complications; O99.211 Obesity complicating pregnancy, first trimester; O10.911 Unspecified pre-existing hypertension complicating pregnancy, first trimester; O99.331 Smoking (tobacco) complicating pregnancy, first trimester; F17.210 Nicotine dependence, cigarettes, uncomplicated; Z79.84 Long term (current) use of oral hypoglycemic drugs; Z79.899 Other long term (current) drug therapy; Z3A.01 Less than 8 weeks gestation of pregnancy
CPT/HCPCS: 36415; 76817; 76817-26; 80053; 84702; 85025; 86140; 86900; 86901; 99282; 99284-25

== ENCOUNTER 2020-10-11 18:31 | Emergency (ER) | payer MEDICAID ==
[2020-10-11 18:55] VITALS: BP 145/102; PULSE 110
[2020-10-11] MEDS ORDERED: Sodium Chloride 0.9% 1,000 ML IV STA (19:01)
[2020-10-11] MEDS ORDERED: Ondansetron 4 MG/2 ML SDV IVPUSH ONE (19:01)
[2020-10-11] MEDS ORDERED: HYDROmorphone 0.5 MG/0.5 ML Syringe IVPUSH ONE (19:01)
[2020-10-11] MEDS ORDERED: HYDROmorphone 1 MG/ML Syringe IM ONE (20:03)
[2020-10-11] MEDS ORDERED: Ondansetron 4 MG Tab.DIS PO ONE (20:04)
--- NOTE | 2020-10-11 21:48 | EDM.PDOC ---
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 She was seen in this ER 10 days ago for similar complaints. Work-up was completed at that time and showed a minimally elevated hCG. She states that she has been following up with Dr. Simon, MANUFACTURING ENGINEERING MANAGER with regards to this. She states that her hCG levels are increasing. Her last hCG was approximately 531 and was checked 3 days ago. She has had consistent ongoing bleeding since she was seen here 10 days ago be. She does not feel the bleeding is necessarily increased, however she does have some increased back pain that is worse with bending or with movement. She is G3, P0 with a history of 2 previous miscarriages. Lower Back Pain Score (Numeric/FACES): 8 - Related Data Allergies Allergy/AdvReac Type Severity Reaction Status Date / Time No Known Allergies Allergy Verified 04/25/20 01:35 Home Meds: Home Meds metFORMIN [Glucophage] 1,000 mg PO DAILY 07/11/19 [History] Doxepin [SINEquan] 50 mg PO BEDTIME 10/01/20 [History] Metoprolol Tartrate 25 mg PO DAILY 10/01/20 [History] Past Medical History - Past Health History Medical/Surgical History: Denies Medical/Surgical History HEENT History: Reports: Otitis Media Cardiovascular History: Reports: Hypertension Respiratory History: Reports: None Gastrointestinal History: Reports: None Genitourinary History: Reports: UTI, Recurrent 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 Hematologic History: Reports: Anemia Immunologic History: Reports: None Oncologic (Cancer) History: Reports: None Dermatologic History: Reports: None - Infectious Disease History Infectious Disease History: Reports: Chicken Pox, Measles Social & Family History - Family History Family Medical History: No Pertinent Family History Cardiac: Reports: Hypertension OBGYN: Reports: Dysfunctional uterine bleeding Endocrine/Metabolic: Reports: Diabetes, type II Oncologic: Reports: Breast - Tobacco Use Tobacco Use Status *Q: Current Every Day Tobacco User Years of Tobacco use: 5 Packs/Tins Daily: 0.5 - Caffeine Use Caffeine Use: Reports: Soda - Recreational Drug Use Recreational Drug Use: No - Living Situation & Occupation Living situation: Reports: Single, Other (with a friend) 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 ROS GENERAL - Review of Systems Review Of Systems: See Below Constitutional: Reports: No Symptoms HEENT: Reports: No Symptoms Respiratory: Reports: No Symptoms Cardiovascular: Reports: No Symptoms Endocrine: Reports: No Symptoms GI/Abdominal: Reports: No Symptoms : Reports: Other (Pelvic cramping, bloody vaginal discharge, and back pain.) Musculoskeletal: Reports: Back Pain Skin: Reports: No Symptoms Neurological: Reports: No Symptoms Psychiatric: Reports: No Symptoms Hematologic/Lymphatic: Reports: No Symptoms Immunologic: Reports: No Symptoms ED EXAM - Physical Exam Exam: See Below General Appearance: Alert, WD/WN, No Apparent Distress Respiratory/Chest: No Respiratory Distress, Lungs Clear, Normal Breath Sounds, No Accessory Muscle Use, Chest Non-Tender Cardiovascular: Normal Peripheral Pulses, Regular Rate, Rhythm, No Edema, No Gallop, No JVD, No Murmur, No Rub GI/Abdominal Exam: Normal Bowel Sounds, Soft, No Organomegaly, No Distention, No Abnormal Bruit, No Mass, Pelvis Stable, Other (Mild suprapubic tenderness) Neurological: Alert, Oriented, CN II-XII Intact, Normal Cognition, Normal Gait, Normal Reflexes, No Motor/Sensory Deficits Psychiatric: Normal Affect, Normal Mood Skin Exam: Warm, Dry, Intact, Normal Color, No Rash Course - Vital Signs Last Recorded V/S: Last Vital Signs Temp 97.6 F 10/11/20 18:53 Pulse 110 H 10/11/20 18:53 Resp 20 10/11/20 18:53 BP 145/102 H 10/11/20 18:53 Pulse Ox 99 10/11/20 18:53 - Orders/Labs/Meds Orders: Active Orders 24 hr Category Date Time Status OB Transvaginal [US] Stat Exams 10/11/20 19:01 Taken Labs: Laboratory Tests 10/11/20 10/11/20 10/11/20 Range/Units 20:07 20:07 20:07 WBC 10.84 H (3.98-10.04) K/mm3 RBC 4.76 (3.98-5.22) M/mm3 Hgb 11.4 (11.2-15.7) gm/dl Hct 36.6 (34.1-44.9) % MCV 76.9 L (79.4-94.8) fl MCH 23.9 L (25.6-32.2) pg MCHC 31.1 L (32.2-35.5) g/dl RDW Std Deviation 45.3 (36.4-46.3) fL Plt Count 469 H (182-369) K/mm3 MPV 10.0 (9.4-12.3) fl Neut % (Auto) 57.0 (34.0-71.1) % Lymph % (Auto) 34.8 (19.3-51.7) % Andrews % (Auto) 5.8 (4.7-12.5) % Eos % (Auto) 1.7 (0.7-5.8) Baso % (Auto) 0.5 (0.1-1.2) % Neut # (Auto) 6.19 H (1.56-6.13) K/mm3 Lymph # (Auto) 3.77 H (1.18-3.74) K/mm3 Andrews # (Auto) 0.63 H (0.24-0.36) K/mm3 Eos # (Auto) 0.18 (0.04-0.36) K/mm3 Baso # (Auto) 0.05 (0.01-0.08) K/mm3 Manual Slide Review Abnormal smear Sodium 137 (136-145) mEq/L Potassium 3.9 (3.5-5.1) mEq/L Chloride 102 (98-107) mEq/L Carbon Dioxide 27 (21-32) mEq/L Anion Gap 11.9 (5-15) BUN 11 (7-18) mg/dL Creatinine 0.9 (0.55-1.02) mg/dL Est Cr Clr Drug Dosing 80.36 mL/min Estimated GFR (MDRD) > 60 (>60) mL/min BUN/Creatinine Ratio 12.2 L (14-18) Glucose 91 (74-106) mg/dL Calcium 8.9 (8.5-10.1) mg/dL Total Bilirubin 0.2 (0.2-1.0) mg/dL AST 21 (15-37) U/L ALT 27 (14-59) U/L Alkaline Phosphatase 79 (46-116) U/L C-Reactive Protein 2.7 H* (<1.0) mg/dL Total Protein 7.7 (6.4-8.2) g/dl Albumin 3.4 (3.4-5.0) g/dl Globulin 4.3 gm/dL Albumin/Globulin Ratio 0.8 L (1-2) HCG, Quant 1604.0 mIU/mL Blood Type 10/11/20 Range/Units 20:07 WBC (3.98-10.04) K/mm3 RBC (3.98-5.22) M/mm3 Hgb (11.2-15.7) gm/dl Hct (34.1-44.9) % MCV (79.4-94.8) fl MCH (25.6-32.2) pg MCHC (32.2-35.5) g/dl RDW Std Deviation (36.4-46.3) fL Plt Count (182-369) K/mm3 MPV (9.4-12.3) fl Neut % (Auto) (34.0-71.1) % Lymph % (Auto) (19.3-51.7) % Andrews % (Auto) (4.7-12.5) % Eos % (Auto) (0.7-5.8) Baso % (Auto) (0.1-1.2) % Neut # (Auto) (1.56-6.13) K/mm3 Lymph # (Auto) (1.18-3.74) K/mm3 Andrews # (Auto) (0.24-0.36) K/mm3 Eos # (Auto) (0.04-0.36) K/mm3 Baso # (Auto) (0.01-0.08) K/mm3 Manual Slide Review Sodium (136-145) mEq/L Potassium (3.5-5.1) mEq/L Chloride (98-107) mEq/L Carbon Dioxide (21-32) mEq/L Anion Gap (5-15) BUN (7-18) mg/dL Creatinine (0.55-1.02) mg/dL Est Cr Clr Drug Dosing mL/min Estimated GFR (MDRD) (>60) mL/min BUN/Creatinine Ratio (14-18) Glucose (74-106) mg/dL Calcium (8.5-10.1) mg/dL Total Bilirubin (0.2-1.0) mg/dL AST (15-37) U/L ALT (14-59) U/L Alkaline Phosphatase (46-116) U/L C-Reactive Protein (<1.0) mg/dL Total Protein (6.4-8.2) g/dl Albumin (3.4-5.0) g/dl Globulin gm/dL Albumin/Globulin Ratio (1-2) HCG, Quant mIU/mL Blood Type O POSITIVE Meds: Medications Discontinued Medications Generic Name Dose Route Start Last Admin Trade Name Freq PRN Reason Stop Dose Admin Hydromorphone HCl 0.5 mg 10/11/20 19:01 Dilaudid IVPUSH 10/11/20 19:02 ONETIME ONE Hydromorphone HCl 1 mg 10/11/20 20:03 10/11/20 20:09 Dilaudid IM 10/11/20 20:04 1 mg ONETIME ONE Administration Sodium Chloride 1,000 mls @ 150 mls/hr 10/11/20 19:01 Normal Saline IV 10/12/20 01:40 NOW STA Ondansetron HCl 4 mg 10/11/20 19:01 Zofran IVPUSH 10/11/20 19:02 ONETIME ONE Ondansetron HCl 4 mg 10/11/20 20:04 10/11/20 20:09 Zofran Odt PO 10/11/20 20:05 4 mg ONETIME ONE Administration - Re-Assessments/Exams Free Text/Narrative Re-Assessment/Exam: Patient is a 29-year-old female presenting to the emergency department with complaints of concern general bleeding and cramping. She was first seen 10 days ago for similar complaint. States it has been ongoing since that time. She has been following up with Dr. Simon. Last visit was 3 days ago. She states her hCG level was around 531 at that point. She is complaining of more back pain at this time. States it is painful with walking or bending. I have ordered CBC, CMP, quantitative hCG, transvaginal ultrasound, and ABO/Rh, however we are aware that she is O+. 10/11/20 21:48 Quantitative hCG is elevated at 1604 which is approximately triple what it was 3 days ago. Blood work was otherwise unremarkable. Transvaginal ultrasound shows 1. Tiny, round, cystic area in the endometrium. This could represent an early week, 1 day intrauterine gestation sac, but there is no pole or yolk sac seen. Notes that an ectopic gestation is not entirely excluded in this patient. Recommend correlation with quantitative beta hCG levels and a follow-up ultrasound to confirm an intrauterine . . To. Findings suspicious for small amount of blood products/clot in the endocervical canal. 3. 2.5 x 2.0 cm uterine fibroid. Findings discussed with the patient. Recommend that she follow-up with Dr. Simon tomorrow morning. Discouraged use of ibuprofen, but recommend that she continue to use Tylenol and heat to her low back as needed. She is in agreement with this plan. Discharge instructions as documented. Departure - Departure Time of Disposition: 21:48 Disposition: Home, Self-Care 01 Condition: Good Clinical Impression: Threatened - Discharge Information *PRESCRIPTION DRUG MONITORING PROGRAM REVIEWED*: No *COPY OF PRESCRIPTION DRUG MONITORING REPORT IN PATIENT MORELIA: No Instructions: Threatened Miscarriage Referrals: Rebecca Rice MD [Primary Care Provider] - Additional Instructions: You were seen in the emergency department today for continued bleeding, pelvic cramping, and low back pain which is been fairly consistent over the last 10 days with some worsening of back pain today. Work-up included blood work, and a transvaginal ultrasound. Results your work-up show that your beta hCG level has essentially tripled. Today it was 1601. Results of the ultrasound show a small cystic area within your uterus which could be healthcare sales representative of an early gestational sac. As we discussed, ectopic cannot necessarily be excluded. You should follow-up with Dr. Simon tomorrow morning to discuss today's results and for recommendations of follow-up. And that you continue to use [id number] Tylenol and heat to your lower back as needed. If you experience any new or worsening symptoms, please not hesitate to return to the emergency department. Sepsis Event Note (ED) - Evaluation Sepsis Screening Result: No Definite Risk - Focused Exam Vital Signs: Vital Signs Temp Pulse Resp BP Pulse Ox 10/11/20 18:53 97.6 F 110 H 20 145/102 H 99 - My Orders Last 24 Hours: My Active Orders 10/11/20 19:01 OB Transvaginal [US] Stat - Assessment/Plan Last 24 Hours: My Active Orders 10/11/20 19:01 OB Transvaginal [US] Stat
--- NOTE | 2020-10-12 09:03 | US ---
PROCEDURE INFORMATION: Exam: US , Transvaginal Exam date and time: 10/11/2020 7:30 PM Age: 29 years old Clinical indication: Lmp or gestational age (in weeks): Working chad not provided; Antepartum complications; Bleeding and other: Cramping; Patient HX: No hcg levels for today at time of exam or end TECHNIQUE: Imaging protocol: Real-time transvaginal obstetrical ultrasound of the maternal pelvis and a first trimester with image documentation. Transvaginal imaging was used for better evaluation of the fetus, adnexa, and/or cervix. COMPARISON: 4:33 PM FINDINGS: Gestation: Tiny, round cystic area seen within the endometrium, measuring 5.6 x 2.9 x 4.9 mm. This could represent an early intrauterine gestational sac. However, there is no internal pole or yolk sac identified. If this is a gestational sac, it would correspond to an estimated gestational age of 5 weeks, 1 day, based on a mean gestational sac diameter of 4.5 mm. MATERNAL: Uterus: Round, solid-appearing area in the lower uterine segment anteriorly, measuring 2.5 x 2.0 cm, localized to the myometrium, most likely representing an intramural fibroid. Cervix: 1.1 x 0.7 cm focal area of decreased echogenicity in the upper cervix centrally, which could represent a small amount of blood products/clot in the endocervical canal. Right adnexa: Right ovary measures 3.8 x 2.2 x 2.3 cm. It contains a 2.7 x 1.8 cm complex cystic lesion. This lesion has ultrasound features most suggestive of a corpus luteal cyst. Flow seen in the right ovary on color and Doppler imaging, with no evidence of torsion. Left adnexa: Left ovary measures 3.6 x 2.5 x 1.9 cm, and is within normal limits in appearance. Flow seen in the left ovary on color and Doppler imaging, with no evidence of torsion. IMPRESSION: 1. Tiny, round, cystic area in the endometrium. This could represent an early (5 week, 1 day) intrauterine gestational sac, but there is no pole or yolk sac seen. Note that an ectopic gestation is not entirely excluded in this patient. Recommend correlation with quantitative beta HCG levels, and a follow up ultrasound to confirm an IUP. 2. Findings suspicious for a small amount of blood products/clot in the endocervical canal. 3. 2.5 x 2.0 cm uterine fibroid. 4. See above for remaining findings. Thank you for allowing us to participate in the care of your patient. Dictated and Authenticated by: Ginette Montes MD 10/11/2020 9:30 PM Central Time ([place] & [place]) ANAST[place]
== END 2020-10-11 22:03 | disposition home or self-care (01) ==
LOC: JD.ED 18:31
DX: O20.0 Threatened abortion (principal); O24.111 Pre-existing type 2 diabetes mellitus, in pregnancy, first trimester; O10.911 Unspecified pre-existing hypertension complicating pregnancy, first trimester; O99.211 Obesity complicating pregnancy, first trimester; O99.331 Smoking (tobacco) complicating pregnancy, first trimester; F17.210 Nicotine dependence, cigarettes, uncomplicated; Z79.84 Long term (current) use of oral hypoglycemic drugs; Z3A.01 Less than 8 weeks gestation of pregnancy
CPT/HCPCS: 36415; 76817; 80053; 84702; 85025; 86140; 86900; 86901; 96372; 99284; A9270; J1170

== ENCOUNTER 2020-11-26 05:32 | Emergency (ER) | payer MEDICAID ==
--- NOTE | 2020-11-26 06:08 | EDM.PDOC ---
ED HPI GENERAL MEDICAL PROBLEM - General Chief Complaint: Respiratory Problem Stated Complaint: COVID SYMPTOMS Time Seen by Provider: 11/26/20 05:42 Source of Information: Reports: Patient History Limitations: Reports: No Limitations - History of Present Illness INITIAL COMMENTS - FREE TEXT/NARRATIVE: Ms. Shepard is a very pleasant 30-year-old woman who now presents the ED concerned that she may have COVID-19. She states that she developed both sinus congestion and a nonproductive cough this past 11/24/2020, then generalized body aches and loss of taste and smell yesterday, 11/25/2020. No recent fever, and she denies dyspnea. The patient states that she has been taking Mucinex, Emergen-C, and ibuprofen, without significant improvement in her symptoms. The patient states that she tested negative for COVID-19 about 2 weeks ago, but since then has gone out, without taking appropriate precautions. Here in the ED, the patient is found to be hemodynamically stable, afebrile, saturating 97% on room air. Prior to Friday, the patient denies having a recent fever, chills, sore throat, ear pain, nasal or sinus congestion, cough, dyspnea, chest pain, palpitations, nausea, vomiting, constipation, diarrhea, abdominal pain, urinary symptoms, recent weight gain or weight loss, recent bloody bowel movements or black bowel movements, recent joint aches, headaches, or rashes. The patient's PCP is MATILDA Briceno. She has not received an influenza vaccine this season, and declined an offer to receive one here in the ED. 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 : 3 Para: 0 Endocrine/Metabolic History: Reports: Diabetes, Type II, Obesity/BMI 30+ - Infectious Disease History Infectious Disease History: Reports: Chicken Pox, Measles Social & Family History - Family History Cardiac: Reports: Hypertension OBGYN: Reports: Dysfunctional uterine bleeding Endocrine/Metabolic: Reports: Diabetes, type II Oncologic: Reports: Breast - Tobacco Use Tobacco Use Status *Q: Current Every Day Tobacco User Years of Tobacco use: 10 Packs/Tins Daily: 0.2 Packs/Tins Daily Comment: Down from 11/27 ppd - Caffeine Use Caffeine Use: Reports: None - Alcohol Use Alcohol Use History: Yes Alcohol Use Frequency: Socially - Recreational Drug Use Recreational Drug Use: Yes Drug Use in Last 12 Months: No Recreational Drug Type: Reports: Ecstasy (last took Dec 2018), Marijuana/Hashish (last smoked when 16 yrs old) - Living Situation & Occupation Living situation: Reports: Single, Alone 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 ED EXAM, GENERAL - Physical Exam Exam: See Below Exam Limited By: No Limitations General Appearance: Alert, WD/WN, No Apparent Distress Eye Exam: Bilateral Eye: EOMI, Normal Inspection Ears: Normal External Exam, Hearing Grossly Normal Nose: Normal Inspection, Other (Bilateral nasal mucosa edema) Throat/Mouth: Normal Inspection, Normal Lips, Normal Voice, No Airway Compromise, Other Head: Atraumatic, Normocephalic Neck: Normal Inspection, Full Range of Motion. No: Lymphadenopathy (L), Lymphadenopathy (R) Respiratory/Chest: No Respiratory Distress, Lungs Clear, Normal Breath Sounds, No Accessory Muscle Use. No: Decreased Breath Sounds, Crackles, Rhonchi, Wheezing, Stridor, Prolonged Expiration Cardiovascular: Normal Peripheral Pulses, Regular Rate, Rhythm, No Gallop, No JVD, No Murmur, No Rub Peripheral Pulses: 3+: Radial (L), Radial (R) GI/Abdominal: Normal Bowel Sounds, Soft, Non-Tender, No Organomegaly, No Dist ention, No Abnormal Bruit, No Mass Back Exam: Normal Inspection, Full Range of Motion, NT Extremities: Normal Inspection, Normal Range of Motion, Normal Capillary Refill Neurological: Alert, Oriented, Normal Cognition, No Motor/Sensory Deficits Psychiatric: Normal Affect Skin Exam: Warm, Dry, Intact, Normal Color, No Rash Course - Vital Signs Last Recorded V/S: Last Vital Signs Temp 36.3 C 11/26/20 05:37 Pulse 97 11/26/20 06:49 Resp 16 11/26/20 06:49 BP 125/78 11/26/20 06:49 Pulse Ox 98 11/26/20 06:49 - Orders/Labs/Meds Orders: Active Orders 24 hr Category Date Time Status Chest 2V [CR] Stat Exams 11/26/20 06:02 Taken Labs: Laboratory Tests 11/26/20 Range/Units 06:07 Influenza Type A RNA Negative (NEGATIVE) Influenza Type B RNA Negative (NEGATIVE) SARS-CoV-2 RNA (STEPHANI) Negative (NEGATIVE) - Re-Assessments/Exams Free Text/Narrative Re-Assessment/Exam: 11/26/20 06:03 As above, the patient developed sinus congestion and a nonproductive cough this past Friday, then generalized body aches and loss of taste and smell yesterday. No recent fever, and she denies dyspnea. Her physical exam is unremarkable. I have ordered a two-view chest x-ray and a swab for both influenza and the SARS-CoV-2 virus. 11/26/20 07:04 Two-view chest radiograph reviewed. The cardiac silhouette is at the upper limits of normal. No pulmonary vascular congestion. No pleural effusions. No focal infiltrate. No pneumothorax. Formal read per the Radiologist pending. The patient's influenza swab has returned negative. Her swab for the SARS-CoV-2 virus has returned negative. 11/26/20 07:09 Test results discussed with the patient. As above, today's work-up is unremarkable. She is likely suffering from a viral URI. Departure - Departure Time of Disposition: 07:09 Disposition: Home, Self-Care 01 Condition: Good Clinical Impression: Viral URI with cough - Discharge Information *PRESCRIPTION DRUG MONITORING PROGRAM REVIEWED*: Not Applicable *COPY OF PRESCRIPTION DRUG MONITORING REPORT IN PATIENT MORELIA: Not Applicable Referrals: Liza Bush PA-C [Primary Care Provider] - Forms: ED Department Discharge Additional Instructions: You were seen in the emergency room after developing sinus congestion and a dry cough on Friday, followed by generalized body aches and loss of taste and smell yesterday. Work-up in the ER included a chest x-ray and swabs for both influenza and the SARS-CoV-2 virus. Your entire work-up was unremarkable. You do not have pneumonia. You do not have influenza. You do not have COVID-19. Based on your history, physical exam, and ER tests, you are most likely suffering from a viral URI, also known as a common cold. Unfortunately, there are no medicines to get rid of a common cold - it will have to run its course. As discussed, we do not recommend that you take any [id number] cough or cold remedies, as they have been shown to be of no benefit, but do have side e ffects, such as an upset stomach. If any other problems, please do not hesitate to return to the ER. Sepsis Event Note (ED) - Evaluation Sepsis Screening Result: No Definite Risk - Focused Exam Vital Signs: Vital Signs Temp Pulse Resp BP Pulse Ox 11/26/20 06:49 97 16 125/78 98 11/26/20 06:03 79 141/98 H 98 11/26/20 05:37 36.3 C 96 18 97 - My Orders Last 24 Hours: My Active Orders 11/26/20 06:02 Chest 2V [CR] Stat - Assessment/Plan Last 24 Hours: My Active Orders 11/26/20 06:02 Chest 2V [CR] Stat
[2020-11-26 06:50] VITALS: BP 125/78; PULSE 97
[2020-11-26 06:50] LABS: CORONAVIRUS COVID-19 NAA NEGATIVE (NEGATIVE)
--- NOTE | 2020-11-26 09:55 | CR ---
Chest: 2 views of the chest were obtained. Comparison: Prior chest x-ray of 10/07/19. Heart size is slightly enlarged with asymmetric increase of the azygous vein. Findings most likely relate to patient body habitus. Lungs are clear with no acute parenchymal change. Bony structures appear within normal limits. Impression: 1. Findings as noted above most likely related to patient body habitus. 2. Nothing acute is appreciated. Diagnostic code #2
== END 2020-11-26 07:55 | disposition home or self-care (01) ==
LOC: JD.ED 05:32
DX: J06.9 Acute upper respiratory infection, unspecified (principal); E11.9 Type 2 diabetes mellitus without complications; F17.210 Nicotine dependence, cigarettes, uncomplicated; E66.9 Obesity, unspecified; Z68.43 Body mass index [BMI] 50.0-59.9, adult; Z20.822 Contact with and (suspected) exposure to COVID-19; Z79.84 Long term (current) use of oral hypoglycemic drugs
CPT/HCPCS: 0240U; 71046; 99283

== ENCOUNTER 2020-11-26 13:23 | Emergency (ER) | payer MEDICAID ==
[2020-11-26 13:48] VITALS: BP 135/82; PULSE 89
--- NOTE | 2020-11-26 14:12 | EDM.PDOC ---
ED HPI GENERAL MEDICAL PROBLEM - General Chief Complaint: Respiratory Problem Stated Complaint: SOB Time Seen by Provider: 11/26/20 13:40 Source of Information: Reports: Patient, Old Records (previous visit from this AM), RN Notes Reviewed History Limitations: Reports: No Limitations - History of Present Illness INITIAL COMMENTS - FREE TEXT/NARRATIVE: Patient is a 30-year-old female who presents to the ED for the evaluation of her ongoing respiratory symptoms. She was evaluated earlier this morning by Dr. Lima, had a chest x-ray, influenza swab and COVID-19 swab done and all of this returned unremarkable or negative. Patient notes she went home, tried to sleep, and laid down flat twice and woke herself up coughing and felt some chest heaviness like she could not breathe. She thinks that she had a slight panic attack, she went to the walk-in clinic, and told him that she was having chest heaviness so they sent her to the ER for evaluation. Patient notes that she began to get sick on November 24 after she attended the bar last week . She is noting nasal congestion, cough, dyspnea when laying down, and the loss of her sense of taste and smell. She is denying any fevers or chills, nausea/vomiting/diarrhea. Patient's O2 sats at time of triage are 98%, respiratory rate is 20 breaths/min, pulse rate is 89 bpm, temperature is 98.7 F and her blood pressure is 135/82. 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 Hematologic History: Reports: Anemia - Infectious Disease History Infectious Disease History: Reports: Chicken Pox, Measles Social & Family History - Family History Family Medical History: No Pertinent Family History Cardiac: Reports: Hypertension OBGYN: Reports: Dysfunctional uterine bleeding Endocrine/Metabolic: Reports: Diabetes, type II Oncologic: Reports: Breast - Tobacco Use Tobacco Use Status *Q: Current Every Day Tobacco User Years of Tobacco use: 10 Packs/Tins Daily: 0.5 - Caffeine Use Caffeine Use: Reports: Soda - Recreational Drug Use Recreational Drug Use: Yes Drug Use in Last 12 Months: No Recreational Drug Type: Reports: Ecstasy - Living Situation & Occupation Living situation: Reports: Single, Alone 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 ED EXAM, GENERAL - Physical Exam Exam: See Below Exam Limited By: No Limitations General Appearance: Alert, WD/WN, No Apparent Distress, Obese Respiratory/Chest: No Respiratory Distress, Lungs Clear, No Accessory Muscle Use, Chest Non-Tender, Decreased Breath Sounds (decreased diffusely bilaterally) Cardiovascular: Normal Peripheral Pulses, Regular Rate, Rhythm, No Edema Peripheral Pulses: 2+: Radial (L), Radial (R) Extremities: Normal Inspection, Normal Capillary Refill Neurological: Alert, Oriented, Normal Cognition, No Motor/Sensory Deficits Psychiatric: Normal Affect, Normal Mood Skin Exam: Warm, Dry, Intact, Normal Color, No Rash Course - Vital Signs Last Recorded V/S: Last Vital Signs Temp 98.7 F 11/26/20 13:46 Pulse 89 11/26/20 13:46 Resp 22 H 11/26/20 13:46 BP 135/82 11/26/20 13:46 Pulse Ox 98 11/26/20 13:46 - Re-Assessments/Exams Free Text/Narrative Re-Assessment/Exam: 11/26/20 14:11 Patient presents to the ED for ongoing respiratory symptoms. I did review Dr. Lima's note this morning, however even though her swab was negative, her symptoms do fairly well aligned with a COVID-19 infection. I have cautioned her that she should still self quarantine until she can go through the drive- through testing sometime this week, and get a repeat test and the results of that will be more definitive on management. Due to her body habitus, and diagnosis of hypertension, and diabetes/prediabetes, she would be a good candidate for outpatient monoclonal antibody therapy if she would have a positive test sometime this week. I did relay all this information to her, I do believe that the shortness of breath is due to her body habitus and lying down, I did suggest that she should sleep in a fairly upright position for the next week or 2, so she can prevent the feelings of shortness of breath I also told her she should get a pulse oximeter as well to monitor her oxygen saturations. Departure - Departure Time of Disposition: 14:12 Disposition: Home, Self-Care 01 Condition: Good Clinical Impression: Suspected 2019 novel coronavirus infection - Discharge Information *PRESCRIPTION DRUG MONITORING PROGRAM REVIEWED*: No *COPY OF PRESCRIPTION DRUG MONITORING REPORT IN PATIENT MORELIA: No Prescriptions: Codeine/Promethazine [Phenergan with Codeine] 5 ml PO Q4HR PRN #120 ml PRN Reason: Cough Instructions: COVID-19 Frequently Asked Questions, COVID-19: How to Protect Yourself and Others - CDC Referrals: Liza Bush PA-C [Primary Care Provider] - Forms: ED Department Discharge, ED Return to Work/School Form Additional Instructions: You were seen in the ER today for ongoing and/or worsening respiratory symptoms. Your work-up in the ER this morning did consist of influenza swab/COVID-19 swab, and a chest x-ray, all of which were unremarkable. I do believe however that the COVID-19 swab was more of a false negative, and that you are likely suffering from COVID-19. It could be that you presented to early, so that there was not enough viral shedding happened to catch it on the swab. These are not perfect tests, and are only 60% accurate. You will need to go through the drive-through testing to have a second [place] state COVID-19 test performed. The [facility] drive-through testing site is open Friday/Friday from 8 to 11 AM; and from 7 to 10 AM. This is located at [address] [place] [address] telephone number is [phone]. You will need to preregister online at http://testreg.[place].gov before you can get tested. If your state test does come back positive, you would likely be a candidate for outpatient monoclonal antibody IV therapy through this hospital. You may be seen through our COVID-19 clinic at [phone], they can schedule you for outpatient therapy; if you meet the inclusion criteria. Please try to increase your oral fluid intake, and eat multiple small meals throughout the day, to keep yourself healthy. You need to keep yourself nourished in order to fight off this disease. You can try a liquid diet like gatorade/powerade as well to get your electrolytes. You may take 500 mg Tylenol every hours 6 hours for pain/fever relief. Do not exceed 4000 mg Tylenol in a 24-hour time span. However, running a fever is your body's natural response to illness, and it allows the body to develop antibodies to disease, we are recommending trying to limit the use of Tylenol as much as possible to allow your body's natural immune response. You were given a prescription for cough medication, please take as directed for further cough needs. This was sent to the [facility] pharmacy located near [facility], as it is Friday, they only open from 12 to 4 PM today, you will need to go there during this timeframe to obtain this medication to take as directed. You may ask for a pulse oximeter at the window as well, these are fairly in expensive, and would be beneficial to you to monitor your COVID-19 disease. Highly recommend you sleep as inclined as possible for the next few days, if you have an easy chair, please sleep in the most upright position that is comfortable. If you must lay down in bed, please use several pillows to prop your head above your chest. Recommend you obtain a pulse oximeter and monitor your oxygen levels at home, you should place the monitor on your finger, and sit in a calm, quiet position for a few minutes and then record the number that is on the screen. If this consistently below 90% on room air without movement, this would be cause for concern to come back to the hospital for further management of your COVID-19 disease. Sepsis Event Note (ED) - Evaluation Sepsis Screening Result: No Definite Risk - Focused Exam Vital Signs: Vital Signs Temp Pulse Resp BP Pulse Ox 11/26/20 13:46 98.7 F 89 22 H 135/82 98
== END 2020-11-26 14:30 | disposition home or self-care (01) ==
LOC: JD.ED 13:23
DX: R07.9 Chest pain, unspecified (principal); R09.81 Nasal congestion; I10 Essential (primary) hypertension; E11.9 Type 2 diabetes mellitus without complications; E66.9 Obesity, unspecified; F17.210 Nicotine dependence, cigarettes, uncomplicated; Z68.43 Body mass index [BMI] 50.0-59.9, adult; Z79.899 Other long term (current) drug therapy; Z79.84 Long term (current) use of oral hypoglycemic drugs; Z20.822 Contact with and (suspected) exposure to COVID-19
CPT/HCPCS: 99283

== ENCOUNTER 2020-12-12 19:16 | Emergency (ER) | payer MEDICAID ==
[2020-12-12 19:31] VITALS: PULSE 84
--- NOTE | 2020-12-12 19:57 | EDM.PDOC ---
ED HPI GENERAL MEDICAL PROBLEM - General Chief Complaint: Cardiovascular Problem Stated Complaint: LEFT CHEST AND LEG PAIN Time Seen by Provider: 12/12/20 19:25 Source of Information: Reports: Patient, RN Notes Reviewed - History of Present Illness INITIAL COMMENTS - FREE TEXT/NARRATIVE: 30 yr old female with R post calf achy pain for 2 days, worse with movement. Also L sided chest discomfort that comes and goes. She had a lot of coughing about 2 wks ago, now occasional. She was tested for covid and that did come back neg. She does smoke. No fever or chills. No abd pain, nausea or vomiting. She does not feel short of breath at this time. Left Chest Pain Score (Numeric/FACES): 6 - Related Data Allergies Allergy/AdvReac Type Severity Reaction Status Date / Time No Known Allergies Allergy Verified 12/12/20 19:24 Home Meds: Home Meds metFORMIN [Glucophage] 1,500 mg PO DAILY 07/11/19 [History] Doxepin [SINEquan] 50 mg PO BEDTIME 10/01/20 [History] Metoprolol Tartrate 25 mg PO DAILY 10/01/20 [History] Past Medical History - Past Health History Medical/Surgical History: Denies Medical/Surgical History HEENT History: Reports: Otitis Media Cardiovascular History: Reports: Arrhythmia, Hypertension Respiratory History: Reports: None Gastrointestinal History: Reports: None Genitourinary History: Reports: UTI, Recurrent 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 Hematologic History: Reports: Anemia Immunologic History: Reports: None Oncologic (Cancer) History: Reports: None Dermatologic History: Reports: None - Infectious Disease History Infectious Disease History: Reports: Chicken Pox, Measles - Past Surgical History Head Surgeries/Procedures: Reports: None Social & Family History - Family History Family Medical History: No Pertinent Family History Cardiac: Reports: Hypertension OBGYN: Reports: Dysfunctional uterine bleeding Endocrine/Metabolic: Reports: Diabetes, type II Oncologic: Reports: Breast - Tobacco Use Tobacco Use Status *Q: Current Every Day Tobacco User Years of Tobacco use: 10 Packs/Tins Daily: 0.1 - Caffeine Use Caffeine Use: Reports: Soda - Alcohol Use Days Per Week of Alcohol Use: 1 Number of Drinks Per Day: 5 Total Drinks Per Week: 5 - Recreational Drug Use Recreational Drug Use: No - Living Situation & Occupation Living situation: Reports: Single, 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 Denies: Shortness of Breath, Pleuritic Chest Pain Cardiovascular: Reports: Chest Pain GI/Abdominal: Denies: Abdominal Pain, Nausea, Vomiting Musculoskeletal: Reports: Leg Pain. Denies: Shoulder Pain, Arm Pain, Back Pain Skin: Reports: No Symptoms Neurological: Reports: No Symptoms ED EXAM, GENERAL - Physical Exam Exam: See Below General Appearance: Alert, No Apparent Distress Head: Atraumatic Neck: Supple Respiratory/Chest: No Respiratory Distress, Lungs Clear, Normal Breath Sounds, Chest Non-Tender Cardiovascular: Regular Rate, Rhythm GI/Abdominal: Non-Tender Back Exam: No: CVA Tenderness (L), CVA Tenderness (R) Extremities: Normal Inspection, Leg Pain (very mild tenderness L post calf). No: Pedal Edema, Increased Warmth, Redness Neurological: Alert, Oriented, No Motor/Sensory Deficits #1 Interpretation EKG Date: 12/12/20 Rhythm: NSR Mckenzie: Normal P-Wave: Present QRS: Normal ST-T: Other (T wave flat ant. lead, no st elevation or depression) Course - Vital Signs Last Recorded V/S: Last Vital Signs Temp 97.5 F 12/12/20 19:24 Pulse 84 12/12/20 19:24 Resp 16 12/12/20 19:24 BP 145/107 H 12/12/20 20:59 Pulse Ox 96 12/12/20 19:24 - Orders/Labs/Meds Orders: Active Orders 24 hr Category Date Time Status EKG 12 Lead [EKG Documentation Completion] [RC] STAT Care 12/12/20 19:44 Active Chest 1V Frontal [CR] Stat Exams 12/12/20 19:44 Taken VL Duplex Lwr Ext Veins Ltd Lt [US] Stat Exams 12/12/20 19:45 Taken Meds: Medications Discontinued Medications Generic Name Dose Route Start Last Admin Trade Name Freq PRN Reason Stop Dose Admin Clonidine HCl 0.2 mg 12/12/20 20:54 12/12/20 20:59 Catapres PO 12/12/20 20:55 0.2 mg ONETIME ONE Administration - Re-Assessments/Exams Free Text/Narrative Re-Assessment/Exam: 12/12/20 21:51 CXR nl, US of LLE neg for DVT. BP high on arrival and than went higher. Did give clonidine 0.2 mg PO and with that BP did come down nicely. Discharge inst. as documented. Departure - Departure Time of Disposition: 21:29 Disposition: Home, Self-Care 01 Condition: Fair Clinical Impression: Leg pain, left, Atypical chest pain Hypertension Qualifiers: Hypertension type: essential hypertension Qualified Code(s): I10 - Essential (primary) hypertension Instructions: How to Use Cold Therapy, [id number], Nonspecific Chest Pain, Adult, [id number], Hypertension, Adult, [id number] Referrals: Liza Bush PA-C [Primary Care Provider] - Forms: ED Department Discharge Additional Instructions: increase your metropolol to 25 mg twice daily. Purchase a BP unit and take your BP about twice a day for awhile. Keep a log of your BP readings. See your clinic provider later this week or early next week, call for appt. Bring the record of your home BP readings for that appointment. Sepsis Event Note (ED) - Evaluation Sepsis Screening Result: No Definite Risk - Focused Exam Vital Signs: Vital Signs Temp Pulse Resp BP BP Pulse Ox 12/12/20 20:59 145/107 H 12/12/20 19:24 97.5 F 84 16 149/115 H 96 - My Orders Last 24 Hours: My Active Orders 12/12/20 19:44 EKG 12 Lead [EKG Documentation Completion] [RC] STAT Chest 1V Frontal [CR] Stat 12/12/20 19:45 VL Duplex Lwr Ext Veins Ltd Lt [US] Stat - Assessment/Plan Last 24 Hours: My Active Orders 12/12/20 19:44 EKG 12 Lead [EKG Documentation Completion] [RC] STAT Chest 1V Frontal [CR] Stat 12/12/20 19:45 VL Duplex Lwr Ext Veins Ltd Lt [US] Stat
[2020-12-12] MEDS ORDERED: cloNIDine 0.1 MG Tab PO ONE (20:54)
[2020-12-12 20:59] VITALS: BP 145/107
--- NOTE | 2020-12-13 09:00 | CR ---
Chest: Portable view of the chest was obtained. Comparison: Prior chest x-ray of 11/26/20. Heart size and mediastinum are normal. Lungs are clear with no acute parenchymal change. Bony structures are unremarkable. Impression: 1. Nothing acute is seen on portable chest x-ray. Diagnostic code #1
--- NOTE | 2020-12-13 09:00 | US ---
Left lower extremity deep venous ultrasound: Duplex and color Doppler evaluation was obtained of the left common femoral, proximal greater saphenous, superficial femoral, popliteal, posterior tibial and peroneal veins. Right common femoral vein was also evaluated. Findings: Normal phasic flow, augmentation and compression is seen within the visualized deep veins. Impression: 1. No evidence of deep venous thrombosis is seen within the left lower extremity or within the right common femoral vein. Diagnostic code #1 I agree with preliminary report from [facility], finalized on 12/12/20, 10:17 PM [employer] TECHNICIAN
== END 2020-12-12 21:50 | disposition home or self-care (01) ==
LOC: JD.ED 19:16
DX: M79.662 Pain in left lower leg (principal); R07.89 Other chest pain; I10 Essential (primary) hypertension; E11.9 Type 2 diabetes mellitus without complications; F17.200 Nicotine dependence, unspecified, uncomplicated; E66.9 Obesity, unspecified; Z68.43 Body mass index [BMI] 50.0-59.9, adult; Z79.84 Long term (current) use of oral hypoglycemic drugs
CPT/HCPCS: 71045; 71045-26; 93005; 93010; 93971-26-LT; 93971-LT; 99284; 99285-25; A9270-GY

== ENCOUNTER 2021-06-15 18:48 | Emergency (ER) | payer MEDICAID ==
--- NOTE | 2021-06-15 19:07 | EDM.PDOC ---
ED HPI GENERAL MEDICAL PROBLEM - General Chief Complaint: Abdominal Pain Stated Complaint: RIGHT SIDE PAIN Time Seen by Provider: 06/15/21 19:02 Source of Information: Reports: Patient History Limitations: Reports: No Limitations - History of Present Illness INITIAL COMMENTS - FREE TEXT/NARRATIVE: 30-year-old female of -[place] descent presents to the ED for evaluation of gradually worsening right mid lateral abdominal pain that seems to start at the mid axillary line and run medially. It is been present for 3 days and has been gradually worsening. No associated fever chills nausea or vomiting. No diarrhea. She states her bowels have been functioning normally. No blood per rectum. No previous abdominal surgery. Can appreciate the pain is worse with eating or drinking which she is doing just fine. Pain is not being made worse by deep breathing. She states it is slightly worse with walking. Last normal menstrual period was June 10 and therefore is a little bit late. She has had 3 previous pregnancies all ending in miscarriages no living births at home. Pain is described as being constant deep and aching. No strong colicky component to the pain. Patient states she been using Tylenol for pain relief with little help over the last 24 hours. Last bowel movement was today. Patient has not had her COVID-19 vaccination. 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: Reports: Acetaminophen Right Lower Abdomen Pain Score (Numeric/FACES): 7 - Related Data Allergies Allergy/AdvReac Type Severity Reaction Status Date / Time No Known Allergies Allergy Verified 06/15/21 18:59 Home Meds: Home Meds metFORMIN [Glucophage] 1,500 mg PO DAILY 07/11/19 [History] Doxepin [SINEquan] 50 mg PO BEDTIME PRN 10/01/20 [History] Metoprolol Tartrate 25 mg PO DAILY 10/01/20 [History] Past Medical History - Past Health History Medical/Surgical History: Denies Medical/Surgical History HEENT History: Reports: Otitis Media Cardiovascular History: Reports: Arrhythmia, Hypertension Respiratory History: Reports: None Gastrointestinal History: Reports: None Genitourinary History: Reports: UTI, Recurrent 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 Hematologic History: Reports: Anemia Immunologic History: Reports: None Oncologic (Cancer) History: Reports: None Dermatologic History: Reports: None - Infectious Disease History Infectious Disease History: Reports: Chicken Pox, Measles - Past Surgical History Head Surgeries/Procedures: Reports: None Social & Family History - Family History Family Medical History: No Pertinent Family History Cardiac: Reports: Hypertension OBGYN: Reports: Dysfunctional uterine bleeding Endocrine/Metabolic: Reports: Diabetes, type II Oncologic: Reports: Breast - Tobacco Use Tobacco Use Status *Q: Current Every Day Tobacco User Years of Tobacco use: 10 Packs/Tins Daily: 0.1 - Caffeine Use Caffeine Use: Reports: Soda - Recreational Drug Use Recreational Drug Use: No - Living Situation & Occupation Living situation: Reports: Single, Alone 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 Denies: Constipation, Decreased Appetite, Nausea, Stool Incontinence, Vomiting : Reports: Dysuria, Irregular Menses (Her menstrual period was May 11 and therefore she is a little bit late.). Denies: No Symptoms, Flank Pain, Frequency, Hematuria, Pain, Urgency Musculoskeletal: Reports: No Symptoms Skin: Reports: No Symptoms Neurological: Reports: No Symptoms Psychiatric: Reports: No Symptoms Hematologic/Lymphatic: Reports: No Symptoms Immunologic: Reports: No Symptoms ED EXAM, GI/ABD - Physical Exam Exam: See Below Exam Limited By: No Limitations General Appearance: Alert, WD/WN, No Apparent Distress ( BP 12/05/1964.), Other (Temperature is 36.6 degrees. Heart rate 95 and sinus. Respiratory 16 with O2 sats of 97% room air.) Eyes: Bilateral: Normal Appearance (No scleral icterus or blepharal pallor.) Throat/Mouth: Normal Inspection, Normal Lips, Normal Oropharynx, Other Head: Atraumatic, Normocephalic (Tongue is moist) Neck: Normal Inspection, Supple, Non-Tender, Full Range of Motion. No: Lymphadenopathy (L), Lymphadenopathy (R) Respiratory/Chest: No Respiratory Distress, Lungs Clear, Normal Breath Sounds, No Accessory Muscle Use, Chest Non-Tender Cardiovascular: Normal Peripheral Pulses, Regular Rate, Rhythm, No Edema, No Gallop, No Murmur, No Rub GI/Abdominal Exam: Normal Bowel Sounds, Soft, Non-Tender, No Organomegaly, No Mass, Pelvis Stable, Other (Negative pain over McBurney's point) Back Exam: Normal Inspection, Full Range of Motion. No: CVA Tenderness (L), CVA Tenderness (R) Extremities: Normal Inspection, Normal Range of Motion, Non-Tender, No Pedal Edema Neurological: Alert, Oriented, CN II-XII Intact, Normal Cognition Psychiatric: Normal Affect, Normal Mood Skin Exam: Warm, Dry, Intact, Normal Color, No Rash Course - Vital Signs Last Recorded V/S: Last Vital Signs Temp 36.6 C 06/15/21 18:55 Pulse 95 06/15/21 18:55 Resp 16 06/15/21 18:55 BP 112/66 06/15/21 18:55 Pulse Ox 97 06/15/21 18:55 - Orders/Labs/Meds Orders: Active Orders 24 hr Category Date Time Status Abdomen 1V Flat [CR] Stat Exams 06/15/21 19:09 Taken Abdomen Pelvis wo Cont [CT] Stat Exams 06/15/21 20:15 Taken Sodium Chloride 0.9% [Normal Saline] 1,000 ml Med 06/15/21 19:15 Active IV ASDIRECTED Medication Orders Sodium Chloride (Normal Saline) 1,000 mls @ 150 mls/hr IV ASDIRECTED SALLY Last Admin: 06/15/21 19:25 Dose: 150 mls/hr Documented by: PASTOR Labs: Laboratory Tests 06/15/21 06/15/21 06/15/21 Range/Units 19:00 19:00 19:12 WBC 12.37 H (3.98-10.04) K/mm3 RBC 5.06 (3.98-5.22) M/mm3 Hgb 12.1 (11.2-15.7) gm/dl Hct 38.2 (34.1-44.9) % MCV 75.5 L (79.4-94.8) fl MCH 23.9 L (25.6-32.2) pg MCHC 31.7 L (32.2-35.5) g/dl RDW Std Deviation 45.1 (36.4-46.3) fL Plt Count 409 H (182-369) K/mm3 MPV 10.4 (9.4-12.3) fl Neut % (Auto) 57.1 (34.0-71.1) % Lymph % (Auto) 36.5 (19.3-51.7) % [place] % (Auto) 4.8 (4.7-12.5) % Eos % (Auto) 0.7 (0.7-5.8) Baso % (Auto) 0.6 (0.1-1.2) % Neut # (Auto) 7.07 H (1.56-6.13) K/mm3 Lymph # (Auto) 4.51 H (1.18-3.74) K/mm3 [place] # (Auto) 0.59 H (0.24-0.36) K/mm3 Eos # (Auto) 0.09 (0.04-0.36) K/mm3 Baso # (Auto) 0.07 (0.01-0.08) K/mm3 Manual Slide Review Abnormal smear Sodium 139 (136-145) mEq/L Potassium 4.1 (3.5-5.1) mEq/L Chloride 104 (98-107) mEq/L Carbon Dioxide 28 (21-32) mEq/L Anion Gap 11.1 (5-15) BUN 15 (7-18) mg/dL Creatinine 1.0 (0.55-1.02) mg/dL Est Cr Clr Drug Dosing 71.68 mL/min Estimated GFR (MDRD) > 60 (>60) mL/min BUN/Creatinine Ratio 15.0 (14-18) Glucose 100 H (70-99) mg/dL Calcium 8.7 (8.5-10.1) mg/dL Total Bilirubin 0.1 L (0.2-1.0) mg/dL AST 13 L (15-37) U/L ALT 24 (14-59) U/L Alkaline Phosphatase 93 (46-116) U/L C-Reactive Protein 3.3 H* (<1.0) mg/dL Total Protein 8.0 (6.4-8.2) g/dl Albumin 3.5 (3.4-5.0) g/dl Globulin 4.5 gm/dL Albumin/Globulin Ratio 0.8 L (1-2) Urine Color Yellow (Yellow) Urine Appearance Clear (Clear) Urine pH 6.0 (5.0-8.0) Ur Specific [place] 1.025 (1.005-1.030) Urine Protein Negative (Negative) Urine Glucose (UA) Negative (Negative) Urine Ketones Negative (Negative) Urine Occult Blood 2+ H (Negative) Urine Nitrite Negative (Negative) Urine Bilirubin Negative (Negative) Urine Urobilinogen 0.2 (0.2-1.0) Ur Leukocyte Esterase Negative (Negative) Urine RBC 0-5 (0-5) /hpf Urine WBC 0-5 (0-5) /hpf Ur Squamous Epith Cells 0-5 (0-5) /hpf Urine Bacteria Few (FEW) /hpf Urine Mucus Few (FEW) /hpf Urine HCG, Qual (NEGATIVE) 06/15/21 Range/Units 19:12 WBC (3.98-10.04) K/mm3 RBC (3.98-5.22) M/mm3 Hgb (11.2-15.7) gm/dl Hct (34.1-44.9) % MCV (79.4-94.8) fl MCH (25.6-32.2) pg MCHC (32.2-35.5) g/dl RDW Std Deviation (36.4-46.3) fL Plt Count (182-369) K/mm3 MPV (9.4-12.3) fl Neut % (Auto) (34.0-71.1) % Lymph % (Auto) (19.3-51.7) % [place] % (Auto) (4.7-12.5) % Eos % (Auto) (0.7-5.8) Baso % (Auto) (0.1-1.2) % Neut # (Auto) (1.56-6.13) K/mm3 Lymph # (Auto) (1.18-3.74) K/mm3 [place] # (Auto) (0.24-0.36) K/mm3 Eos # (Auto) (0.04-0.36) K/mm3 Baso # (Auto) (0.01-0.08) K/mm3 Manual Slide Review Sodium (136-145) mEq/L Potassium (3.5-5.1) mEq/L Chloride (98-107) mEq/L Carbon Dioxide (21-32) mEq/L Anion Gap (5-15) BUN (7-18) mg/dL Creatinine (0.55-1.02) mg/dL Est Cr Clr Drug Dosing mL/min Estimated GFR (MDRD) (>60) mL/min BUN/Creatinine Ratio (14-18) Glucose (70-99) mg/dL Calcium (8.5-10.1) mg/dL Total Bilirubin (0.2-1.0) mg/dL AST (15-37) U/L ALT (14-59) U/L Alkaline Phosphatase (46-116) U/L C-Reactive Protein (<1.0) mg/dL Total Protein (6.4-8.2) g/dl Albumin (3.4-5.0) g/dl Globulin gm/dL Albumin/Globulin Ratio (1-2) Urine Color (Yellow) Urine Appearance (Clear) Urine pH (5.0-8.0) Ur Specific [place] (1.005-1.030) Urine Protein (Negative) Urine Glucose (UA) (Negative) Urine Ketones (Negative) Urine Occult Blood (Negative) Urine Nitrite (Negative) Urine Bilirubin (Negative) Urine Urobilinogen (0.2-1.0) Ur Leukocyte Esterase (Negative) Urine RBC (0-5) /hpf Urine WBC (0-5) /hpf Ur Squamous Epith Cells (0-5) /hpf Urine Bacteria (FEW) /hpf Urine Mucus (FEW) /hpf Urine HCG, Qual Negative (NEGATIVE) Meds: Medications Generic Name Dose Route Start Last Admin Trade Name Gokul PRN Reason Stop Dose Admin Sodium Chloride 1,000 mls @ 150 mls/hr 06/15/21 19:15 06/15/21 19:25 Normal Saline IV 150 mls/hr ASDIRECTED SALLY Administration Discontinued Medications Generic Name Dose Route Start Last Admin Trade Name Gokul PRN Reason Stop Dose Admin Hydromorphone HCl 0.5 mg 06/15/21 19:08 06/15/21 19:25 Hydromorphone 0.5 Mg/0.5 Ml Syringe IVPUSH 06/15/21 19:09 0.5 mg ONETIME ONE Administration Hydromorphone HCl 0.5 mg 06/15/21 20:15 06/15/21 20:23 Hydromorphone 0.5 Mg/0.5 Ml Syringe IVPUSH 06/15/21 20:16 0.5 mg ONETIME ONE Administration Metoclopramide HCl 10 mg 06/15/21 19:08 06/15/21 19:25 Metoclopramide 10 Mg/2 Ml Sdv IVPUSH 06/15/21 19:09 10 mg ONETIME ONE Administration - Radiology Interpretation Free Text/Narrative:: 30-year-old female presents to the ED for evaluation of gradually worsening right mid lateral abdominal pain that is not necessarily referred into her back. This started 3 days ago and is gradually worsening. She has no fever chills nausea vomiting or diarrhea. She can eat and drink normally. No previous abdominal surgeries. Her period is a bit on the light side with last normal period recorded at a May 11. Cycles are fairly regular on a 28 to 30-day cycle. Therefore her period is a bit late. However examination reveals pain to be higher up in the mid lateral abdomen and not in the pelvis. She has a benign abdominal examination with no peritoneal signs. Plan IV normal saline 150 mils per hour. Given Dilaudid 0.5 mg IV for pain relief with Reglan 10 mg IV. She will have a KUB done. Urinalysis routine labs including a CRP but she is afebrile at this time. - Re-Assessments/Exams Free Text/Narrative Re-Assessment/Exam: 06/15/21 20:04 KUB reveals increased stool in the right hemicolon and portions of the hepatic flexure. The descending colon and rectal vault are empty. 06/15/21 20:06 White cell count is mildly elevated at 12.37. There is normal differential of 57% neutrophils. Hemoglobin is 12.1 with hematocrit of 3038.2. MCV slightly low at 75.5 suggesting iron deficiency platelet counts 109,000. The smear reveals abnormal red blood cell morphology including slight MAC microcytosis, polychromasia and a few target cells and stomatocytes. There is slight thrombocytosis with normal morphology. Leukocytes appear normal with no banded neutrophils. Sodium 139 with potassium 4.1. Chloride 104 the bicarb 28. Anion gap is 11.1. BUN is 15 with a creatinine of 1.0 and a GFR greater than 60. Glucose is 100 with a calcium of 8.7. Liver function is normal. C- reactive protein is mildly elevated at 3.3. Urinalysis shows yellow clear urine 2+ occult blood with no signs of infection. 06/15/21 20:16 Upon further questioning patient states the pain was more up in her right flank a couple of days ago and is moved downwards towards her right lateral mid axillary line. Due to the 2+ hematuria I am going to go ahead and have CT of the abdomen performed per renal protocol ports pain is currently 4 out of 10. We will repeat Dilaudid 0.5 mg IV. 06/15/21 20:29 hCG came back negative. She will now have CT of the abdomen pelvis performed. 06/15/21 20:54 CT of the abdomen and pelvis reveals the bases of the lungs appear normal. Visualized portions of the heart appear normal. Small hiatal hernia appreciated. Liver is mildly enlarged with fatty infiltration but no intraductal dilatation. Gallbladder reveals no calcified gallstones. Pancreas is normal. Spleen is normal. Adrenal glands show no nodules. Both kidneys appear to be within normal limits containing no renal parenchyma stones. Both ureters are normal with no obstructing stones. Uterus is mildly enlarged. Ovaries appear normal. Bowel does contain increased stool particular throughout the right hemicolon and hepatic flexure. Appendix is seen and is within normal limits with no periappendiceal infiltrate. 06/15/21 21:03vRad report is essentially identical to mine. 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 Mild diverticulosis without any evidence of diverticulitis. No intestinal perforation or obstruction. No ascites or pneumoperitoneum. Abdominal aorta is normal without aneurysm. No evidence of any lymphadenopathy. Urinary bladder is within normal limits the uterus is unremarkable as visualized with no pelvic masses appreciated. Discussed the findings with the patient. She has mild to moderate constipation the right hemicolon which is the only thing I can see that might cause her to have the persistent right-sided flank pain without fever and still able to eat be able to eat and drink. Her menses are likely starting as well. I am going to send her home with Citroma to take 8 ounces tomorrow morning with 6 ounces of juice of choice to provide bowel cleanse. We will give her Bentyl 20 mg tab by mouth now to hopefully get her through the night without further right-sided abdominal cramping pain Departure - Departure Time of Disposition: 21:08 Disposition: Home, Self-Care 01 Condition: Fair Clinical Impression: Constipation by delayed colonic transit Abdominal pain Qualifiers: Abdominal location: upper abdomen, unspecified Qualified Code(s): R10.10 - Upper abdominal pain, unspecified - Discharge Information *PRESCRIPTION DRUG MONITORING PROGRAM REVIEWED*: Not Applicable *COPY OF PRESCRIPTION DRUG MONITORING REPORT IN PATIENT [place]: Not Applicable Referrals: Liza Bush PA-C [Primary Care Provider] - Forms: ED Department Discharge Additional Instructions: Evaluation in the emergency room today in regards to persistent right lateral mid abdominal pain for the last 3 days. No associated fever chills nausea vomiting or diarrhea. You can eat and drink normally. Lab test revealed 2+ blood in your urine test and therefore concern arose for possible kidney stone causing pain. CT scan of the abdomen was performed and does not reveal any stone within the right ureter and no stones in either kidney either. No gallstones identified either. In fact the CT of the abdomen proved to be completely normal. Based suspect that you are. Is starting in a few drops of blood entered the urine test to cause it to have 2+ blood within the urine. The only positive finding was increased stool throughout the right hemicolon and up underneath your liver. This can often be caused in the summer months due to the heat not getting adequate fluids and sometimes less hungry when more exposed to increased heat. Treatment is to take magnesium citrate or Citroma 8 ounces of liquid Citroma mixed with 6 ounces of juice of choice or Gatorade Powerade by crispin shah once tomorrow morning. This will start to work in 1 to 2 hours and your bowels will move 3-4 times often ending and diarrhea. This should relieve your right-sided abdominal pain completely. Return to medical care if not markedly improved after bowel cleanse. Sepsis Event Note (ED) - Evaluation Sepsis Screening Result: No Definite Risk - Focused Exam Vital Signs: Vital Signs Temp Pulse Resp BP Pulse Ox 06/15/21 18:55 36.6 C 95 16 112/66 97 - My Orders Last 24 Hours: My Active Orders 06/15/21 19:09 Abdomen 1V Flat [CR] Stat 06/15/21 19:15 Sodium Chloride 0.9% [Normal Saline] 1,000 ml IV ASDIRECTED 06/15/21 20:15 Abdomen Pelvis wo Cont [CT] Stat - Assessment/Plan Last 24 Hours: My Active Orders 06/15/21 19:09 Abdomen 1V Flat [CR] Stat 06/15/21 19:15 Sodium Chloride 0.9% [Normal Saline] 1,000 ml IV ASDIRECTED 06/15/21 20:15 Abdomen Pelvis wo Cont [CT] Stat
[2021-06-15] MEDS ORDERED: Metoclopramide 10 MG/2 ML SDV IVPUSH ONE (19:08)
[2021-06-15] MEDS ORDERED: HYDROmorphone 0.5 MG/0.5 ML Syringe IVPUSH ONE ×2 (19:08→20:15)
[2021-06-15] MEDS ORDERED: Sodium Chloride 0.9% 1,000 ML IV SCH (19:15)
[2021-06-15] MEDS ORDERED: Dicyclomine 10 MG Cap PO ONE (21:07)
[2021-06-15] MEDS ORDERED: Magnesium Citrate Solution 296 ML Bottle PO ONE (21:07)
[2021-06-15 21:26] VITALS: BP 113/71; PULSE 94
--- NOTE | 2021-06-16 11:51 | CR ---
Abdomen: Supine view of the abdomen was obtained. Comparison: Prior abdominal x-ray of 02/27/16. Bowel gas pattern is normal. No abnormal calcifications or soft tissue abnormality is seen. Bony structures appear within normal limits. Impression: 1. Nothing acute is seen on supine abdominal x-ray. Diagnostic code #1
--- NOTE | 2021-06-16 12:15 | CT ---
CT abdomen and pelvis Technique: Multiple axial sections through the abdomen and pelvis were obtained. Intravenous and oral contrast were not utilized. Reconstructed coronal and sagittal images were obtained. Comparison: Prior abdominal x-ray performed earlier on the same day (7:42 PM) and prior limited abdominal ultrasound study of 12/17/14. Findings: Liver shows no focal abnormality. Spleen size is normal. Adrenal glands show no nodule. No abnormality is appreciated within the pancreas. Gallbladder contains no calcified gallstones. Kidneys show no abnormal calcifications. No ureteral dilatation or ureteral stone is seen. Abdominal aorta shows no aneurysm. No retroperitoneal adenopathy or mesenteric abnormalities are seen. No pelvic mass or adenopathy is noted. No free fluid or inflammatory change is seen. Appendix is seen which is normal in size. Bone window settings were reviewed. No acute osseous abnormality is appreciated. Impression: 1. No renal calculi, ureteral dilatation or ureteral stone is seen. 2. Nothing acute is appreciated on noncontrast CT study of the abdomen and pelvis. Diagnostic code #1 I agree with preliminary report from [facility], finalized on 06/15/21, 9:55 PM CDT, code 1
== END 2021-06-15 21:34 | disposition home or self-care (01) ==
LOC: JD.ED 18:48
DX: K59.01 Slow transit constipation (principal); I10 Essential (primary) hypertension; E11.9 Type 2 diabetes mellitus without complications; E66.9 Obesity, unspecified; Z68.43 Body mass index [BMI] 50.0-59.9, adult; Z72.0 Tobacco use; Z79.84 Long term (current) use of oral hypoglycemic drugs; Z79.899 Other long term (current) drug therapy
CPT/HCPCS: 36415; 74018; 74176; 80053; 81001; 81025; 85025; 86140; 96374; 96375; 96376; 99284; A9270; J1170; J2765; J7030

== ENCOUNTER 2021-06-22 01:44 | Emergency (ER) | payer MEDICAID ==
[2021-06-22 01:58] VITALS: BP 136/98; PULSE 98
--- NOTE | 2021-06-22 02:17 | EDM.PDOC ---
ED HPI GENERAL MEDICAL PROBLEM - General Chief Complaint: Respiratory Problem Stated Complaint: RIGHT SIDE PAIN Time Seen by Provider: 06/22/21 02:00 - History of Present Illness INITIAL COMMENTS - FREE TEXT/NARRATIVE: 30-year-old female presents the emergency room with 2 complaints. She continues to have right-sided back pain. And secondly she has trouble staying asleep once she falls asleep. Patient was evaluated here a week ago and had extensive evaluation for right- sided pain. She continues to have some right-sided back pain this is aggravated by change of position bending over and lifting. This is not associated with any nausea vomiting constipation or diarrhea and she really denies any abdominal pain at this time. It was thought that maybe she had some constipation. She used the stool softeners as directed this did not seem to help. She is having regular BMs and they are not excessively hard. Patient complains that when she falls asleep sometimes she has a hard time staying asleep and she wakes up and has to catch her breath. She has been told by her significant other and family members that she snores loud and at times she stops breathing between respirations. - Related Data Allergies Allergy/AdvReac Type Severity Reaction Status Date / Time No Known Allergies Allergy Verified 06/22/21 01:59 Home Meds: Home Meds metFORMIN [Glucophage] 1,500 mg PO DAILY 07/11/19 [History] Doxepin [SINEquan] 50 mg PO BEDTIME PRN 10/01/20 [History] Metoprolol Tartrate 25 mg PO DAILY 10/01/20 [History] Orphenadrine [Norflex] 100 mg PO DAILY PRN #7 tab 06/22/21 [Rx] Past Medical History - Past Health History Medical/Surgical History: Denies Medical/Surgical History HEENT History: Reports: Otitis Media Cardiovascular History: Reports: Arrhythmia, Hypertension Respiratory History: Reports: None Gastrointestinal History: Reports: None Genitourinary History: Reports: UTI, Recurrent 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 Hematologic History: Reports: Anemia Immunologic History: Reports: None Oncologic (Cancer) History: Reports: None Dermatologic History: Reports: None - Infectious Disease History Infectious Disease History: Reports: Chicken Pox, Measles - Past Surgical History Head Surgeries/Procedures: Reports: None Social & Family History - Family History Family Medical History: No Pertinent Family History Cardiac: Reports: Hypertension OBGYN: Reports: Dysfunctional uterine bleeding Endocrine/Metabolic: Reports: Diabetes, type II Oncologic: Reports: Breast - Caffeine Use Caffeine Use: Reports: Soda - Living Situation & Occupation Living situation: Reports: Single, Alone 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 ROS GENERAL - Review of Systems Review Of Systems: See Below Constitutional: Reports: No Symptoms HEENT: Reports: No Symptoms Respiratory: Reports: Other (She does okay as long as she is awake but snores loud and heart is a hard time staying asleep) Cardiovascular: Reports: No Symptoms Endocrine: Reports: No Symptoms GI/Abdominal: Denies: Abdominal Pain, Constipation, Diarrhea, Nausea, Vomiting : Reports: No Symptoms Musculoskeletal: Reports: Back Pain ED EXAM, GENERAL - Physical Exam Exam: See Below Exam Limited By: No Limitations General Appearance: Alert, No Apparent Distress, Obese Throat/Mouth: Normal Inspection, Normal Lips, Normal Teeth, Normal Gums, Normal Oropharynx, Normal Voice, No Airway Compromise Head: Atraumatic, Normocephalic Neck: Normal Inspection, Supple, Non-Tender, Full Range of Motion. No: Lymphadenopathy (L), Lymphadenopathy (R) Respiratory/Chest: No Respiratory Distress, Lungs Clear, Normal Breath Sounds Cardiovascular: Regular Rate, Rhythm, No Edema, No Murmur GI/Abdominal: Normal Bowel Sounds, Soft, Non-Tender, Other (Morbidly obese) Back Exam: Other (Patient has a area of point tenderness in her right lower back lateral to the paraspinous muscles this is the tenderness she is complaining about on her right side) Extremities: Normal Inspection Neurological: Alert, Oriented, Normal Cognition Course - Vital Signs Last Recorded V/S: Last Vital Signs Temp 36.9 C 06/22/21 01:55 Pulse 98 06/22/21 01:55 Resp 18 06/22/21 01:55 BP 136/98 H 06/22/21 01:55 Pulse Ox 98 06/22/21 01:55 - Orders/Labs/Meds Meds: Medications Discontinued Medications Generic Name Dose Route Start Last Admin Trade Name Gokul PRN Reason Stop Dose Admin Orphenadrine Citrate 100 mg 06/22/21 02:18 06/22/21 02:25 Orphenadrine 100 Mg Tab.Er PO 06/22/21 02:19 100 mg ONETIME ONE Administration - Re-Assessments/Exams Free Text/Narrative Re-Assessment/Exam: 06/22/21 02:31 The patient has follow-up in another week and a half with her regular healthcare provider they need to discuss getting her checked for sleep apnea. For low back pain we will try her on nighttime Norflex and see if this offers her some benefit. Departure - Departure Time of Disposition: 02:32 Disposition: Home, Self-Care 01 Clinical Impression: Sleep disturbance, unspecified, Lumbar strain - Discharge Information Referrals: Liza Bush PA-C [Primary Care Provider] - Forms: ED Department Discharge, ED Return to Work/School Form Additional Instructions: Return to the emergency room with any questions problems or worsening symptoms. Follow-up with your regular healthcare provider as scheduled discuss if a overnight sleep study would be beneficial for you. And further evaluation for sleep apnea. You have been started on a muscle relaxant to be used in the evenings to see if this helps with your right-sided low back discomfort. Allow 12 hours after using this medication before driving or returning to work. Sepsis Event Note (ED) - Evaluation Sepsis Screening Result: No Definite Risk - Focused Exam Vital Signs: Vital Signs Temp Pulse Resp BP Pulse Ox 06/22/21 01:55 36.9 C 98 18 136/98 H 98
[2021-06-22] MEDS ORDERED: Orphenadrine 100 MG Tab.ER PO ONE (02:18)
== END 2021-06-22 02:41 | disposition home or self-care (01) ==
LOC: JD.ED 01:44
DX: S39.012A Strain of muscle, fascia and tendon of lower back, initial encounter (principal); G47.9 Sleep disorder, unspecified; I10 Essential (primary) hypertension; E11.9 Type 2 diabetes mellitus without complications; E66.9 Obesity, unspecified; Z68.42 Body mass index [BMI] 45.0-49.9, adult; Z79.84 Long term (current) use of oral hypoglycemic drugs; Z79.899 Other long term (current) drug therapy; X58.XXXA Exposure to other specified factors, initial encounter
CPT/HCPCS: 99283; A9270

== ENCOUNTER 2021-08-05 11:51 | Emergency (ER) | payer MEDICAID ==
[2021-08-05 12:22] VITALS: BP 134/93; PULSE 96
[2021-08-05] MEDS ORDERED: Codeine/Promethazine 10-6.25 MG/5 ML Syrup 5 ML UD Cup PO ONE (12:44)
[2021-08-05] MEDS ORDERED: Albuterol 6.7 GM Inhaler INH ONE (12:45)
--- NOTE | 2021-08-05 12:54 | EDM.PDOC ---
ED HPI GENERAL MEDICAL PROBLEM - General Chief Complaint: Respiratory Problem Stated Complaint: COVID + Time Seen by Provider: 08/05/21 12:22 Source of Information: Reports: Patient, RN Notes Reviewed History Limitations: Reports: No Limitations - History of Present Illness INITIAL COMMENTS - FREE TEXT/NARRATIVE: Patient is a 30-year-old female presents to the ER for ongoing COVID-19 symptoms. States she became sick about 3 days ago, and was diagnosed with COVID-19 at the walk-in clinic yesterday. States she had a chest x-ray at that time. She was told that it was clear and was discharged home. Patient presents to the ER today, because she was laying down, and found it difficult to breathe. Patient is morbidly obese with a BMI of 55, and she also believes she has sleep apnea, but this has not been confirmed by a test at this time yet. Primary care provider is Liza Bush. Patient states she has felt hot and cold, but no discernible fever at home. She is not having any nausea/vomiting/diarrhea. Generalized Pain Score (Numeric/FACES): 5 - Related Data Allergies Allergy/AdvReac Type Severity Reaction Status Date / Time No Known Allergies Allergy Verified 08/05/21 12:23 Home Meds: Home Meds metFORMIN [Glucophage] 1,500 mg PO DAILY 07/11/19 [History] Doxepin [SINEquan] 50 mg PO BEDTIME PRN 10/01/20 [History] Metoprolol Tartrate 25 mg PO DAILY 10/01/20 [History] Orphenadrine [Norflex] 100 mg PO DAILY PRN #7 tab 06/22/21 [Rx] Promethazine HCl/Codeine [Prometh-Codein 6.25-10 mg/5 ml] 10 ml PO Q4H PRN #120 ml 08/05/21 [Rx] Past Medical History - Past Health History Medical/Surgical History: Denies Medical/Surgical History HEENT History: Reports: Otitis Media Cardiovascular History: Reports: Arrhythmia, Hypertension Respiratory History: Reports: None Gastrointestinal History: Reports: None Genitourinary History: Reports: UTI, Recurrent 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 Hematologic History: Reports: Anemia Immunologic History: Reports: None Oncologic (Cancer) History: Reports: None Dermatologic History: Reports: None - Infectious Disease History Infectious Disease History: Reports: Chicken Pox, Measles - Past Surgical History Head Surgeries/Procedures: Reports: None Social & Family History - Family History Family Medical History: No Pertinent Family History Cardiac: Reports: Hypertension OBGYN: Reports: Dysfunctional uterine bleeding Endocrine/Metabolic: Reports: Diabetes, type II Oncologic: Reports: Breast - Caffeine Use Caffeine Use: Reports: Soda - Living Situation & Occupation Living situation: Reports: Single, Alone 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 ED EXAM, GENERAL - Physical Exam Exam: See Below Exam Limited By: No Limitations General Appearance: Alert, WD/WN, No Apparent Distress Course - Vital Signs Last Recorded V/S: Last Vital Signs Temp 98.0 F 08/05/21 12:21 Pulse 96 08/05/21 12:21 Resp 20 08/05/21 12:21 BP 134/93 H 08/05/21 12:21 Pulse Ox 94 L 08/05/21 12:21 - Orders/Labs/Meds Orders: Active Orders 24 hr Category Date Time Status RT Post Treatment Assessment [RC] Click to Edit Care 08/05/21 12:45 Ordered RT Pre-Treatment Assessment [RC] Click to Edit Care 08/05/21 12:45 Ordered Meds: Medications Discontinued Medications Generic Name Dose Route Start Last Admin Trade Name Gokul PRN Reason Stop Dose Admin Albuterol 0 gm 08/05/21 12:45 Albuterol 6.7 Gm Inhaler INH 08/05/21 12:46 ONETIME ONE Promethazine HCl/Codeine 10 ml 08/05/21 12:44 Codeine/Promethazine 10-6.25 Mg/5 Ml Syrup 5 Ml Ud Cup PO 08/05/21 12:45 ONETIME ONE - Re-Assessments/Exams Free Text/Narrative Re-Assessment/Exam: 08/05/21 12:51 Patient presents to the ER for evaluation of her COVID-19 symptoms, states she had a chest x-ray yesterday, and would not like another one done for today's visit. Initially she stated that she would like to do the IV Regeneron therapy, but about 10 minutes after she decided that she wanted it, she declined it and is requesting cough medication and something like an inhaler or nebulizer. I will order an inhaler for her to go home with, as well as a spacer, but given her some cough medication here, and give her prescription for some cough medication for outpatient purposes. At this time since she does not want the Regeneron therapy, and her O2 sats are okay at 97 to 98% on room air, I do not feel it warranted to need to do much more of a work-up at this time. She will be discharged home with the inhaler and cough medication. Departure - Departure Time of Disposition: 12:52 Disposition: Home, Self-Care 01 Condition: Good Clinical Impression: COVID-19 - Discharge Information *PRESCRIPTION DRUG MONITORING PROGRAM REVIEWED*: Yes *COPY OF PRESCRIPTION DRUG MONITORING REPORT IN PATIENT MORELIA: No Instructions: COVID-19 Frequently Asked Questions, 10 Things You Can Do to Manage Your COVID-19 Symptoms at Home - [facility] (05/24/2020) Additional Instructions: You were seen in the ER today for ongoing and/or worsening respiratory symptoms. Your oxygen levels were great at 97-98% on room air. You were given an inhaler through this ER visit, please use as directed by the respiratory therapist for ongoing shortness of breath, if you believe it is helping. Please try to increase your oral fluid intake, and eat multiple small meals throughout the day, to keep yourself healthy. You need to keep yourself nourished in order to fight off this disease. You can try a liquid diet like gatorade/powerade as well to get your electrolytes. You may take 500 mg Tylenol every hours 6 hours for pain/fever relief. Do not exceed 4000 mg Tylenol in a 24-hour time span. However, running a fever is your body's natural response to illness, and it allows the body to develop antibodies to disease, we are recommending trying to limit the use of Tylenol as much as possible to allow your body's natural immune response. You should be able to call the [facility], tomorrow morning and tell me have COVID-19 and they should be able to get you a pulse oximeter to monitor your oxygen levels at home. You should place the monitor on your finger, and sit in a calm, quiet position for a few minutes and then record the number that is on the screen. If this consistently below 90% on room air without movement, this would be cause for concern to come back to the hospital for further management of your COVID-19 disease. Please follow all guidance set forth from [facility], regarding isolation purposes for your disease process. General isolation times are 10 days from when you started being symptomatic. You were given a prescription for cough medication, you will need to take 5 to 10 mL every 4 hours as needed for ongoing cough. This cough medication can make you drowsy, so please caution use of this during the day. This medication was electronically sent to the [facility] located near [facility]. Sepsis Event Note (ED) - Focused Exam Vital Signs: Vital Signs Temp Pulse Resp BP Pulse Ox 08/05/21 12:21 98.0 F 96 20 134/93 H 94 L - My Orders Last 24 Hours: My Active Orders 08/05/21 12:45 RT Post Treatment Assessment [RC] Click to Edit RT Pre-Treatment Assessment [RC] Click to Edit - Assessment/Plan Last 24 Hours: My Active Orders 08/05/21 12:45 RT Post Treatment Assessment [RC] Click to Edit RT Pre-Treatment Assessment [RC] Click to Edit
== END 2021-08-05 14:08 | disposition home or self-care (01) ==
LOC: JD.ED 11:51
DX: U07.1 COVID-19 (principal); I10 Essential (primary) hypertension; E11.9 Type 2 diabetes mellitus without complications; E66.9 Obesity, unspecified; Z68.43 Body mass index [BMI] 50.0-59.9, adult; Z79.84 Long term (current) use of oral hypoglycemic drugs; Z79.899 Other long term (current) drug therapy
CPT/HCPCS: 99284; A9270; 99282

== ENCOUNTER 2021-10-24 17:47 | Emergency (ER) | payer MEDICAID ==
[2021-10-24 19:01] VITALS: BP 131/100; PULSE 89
[2021-10-24] MEDS ORDERED: Acetaminophen 325 MG Tab PO ONE (19:11)
[2021-10-24] MEDS ORDERED: Metoclopramide 10 MG/2 ML SDV IM ONE (19:11)
[2021-10-24] MEDS ORDERED: diphenhydrAMINE 50 MG/ML SDV IM ONE (19:11)
--- NOTE | 2021-10-24 19:26 | EDM.PDOC ---
ED HPI GENERAL MEDICAL PROBLEM - General Chief Complaint: Headache Stated Complaint: HEADACHE Time Seen by Provider: 10/24/21 19:10 Source of Information: Reports: Patient History Limitations: Reports: No Limitations - History of Present Illness INITIAL COMMENTS - FREE TEXT/NARRATIVE: Patient is a 30-year-old female with a history of morbid obesity presenting with a chief complaint of headache. Patient reports his headache is been ongoing for the past 2 weeks. Patient reports headache is located on bilateral temples. States the headache is somewhat improved with Tylenol and ibuprofen at home. Headache does not seem to have fully resolved. Patient reports associated sinus congestion, nausea and mild dry cough. She did have Covid 1 month ago and was symptom-free for approximately 2 weeks before the headache started. Patient otherwise denies blurry vision, neck pain, fevers, vomiting, diarrhea, syncopal episode, numbness, tingling, paresthesias, focal weakness. Patient denies any prior history of similar type headaches. Also denies history of head trauma. Treatments USER EXPERIENCE LEAD: Reports: NSAIDS Other Treatments USER EXPERIENCE LEAD: Pt had Toradol injection and Antibiotics this aftn. Bilateral Headache Pain Score (Numeric/FACES): 8 - Related Data Allergies Allergy/AdvReac Type Severity Reaction Status Date / Time No Known Allergies Allergy Verified 10/24/21 20:32 Home Meds: Home Meds metFORMIN [Glucophage] 1,500 mg PO DAILY 07/11/19 [History] Doxepin [SINEquan] 50 mg PO BEDTIME PRN 10/01/20 [History] Metoprolol Tartrate 25 mg PO DAILY 10/01/20 [History] Orphenadrine [Norflex] 100 mg PO DAILY PRN #7 tab 06/22/21 [Rx] Promethazine HCl/Codeine [Prometh-Codein 6.25-10 mg/5 ml] 10 ml PO Q4H PRN #120 ml 08/05/21 [Rx] Ondansetron [Zofran ODT] 4 mg PO Q6H PRN #10 tab.dis 10/24/21 [Rx] Past Medical History - Past Health History Medical/Surgical History: Denies Medical/Surgical History HEENT History: Reports: Otitis Media Cardiovascular History: Reports: Arrhythmia, Hypertension Respiratory History: Reports: None Gastrointestinal History: Reports: None Genitourinary History: Reports: UTI, Recurrent 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 Hematologic History: Reports: Anemia Immunologic History: Reports: None Oncologic (Cancer) History: Reports: None Dermatologic History: Reports: None - Infectious Disease History Infectious Disease History: Reports: Chicken Pox, Measles, Novel Coronavirus - Past Surgical History Head Surgeries/Procedures: Reports: None Social & Family History - Family History Family Medical History: No Pertinent Family History Cardiac: Reports: Hypertension OBGYN: Reports: Dysfunctional uterine bleeding Endocrine/Metabolic: Reports: Diabetes, type II Oncologic: Reports: Breast - Tobacco Use Tobacco Use Status *Q: Current Every Day Tobacco User Years of Tobacco use: 10 Packs/Tins Daily: 1 - Caffeine Use Caffeine Use: Reports: None - Recreational Drug Use Recreational Drug Use: No - Living Situation & Occupation Living situation: Reports: Single, Alone 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 ROS GENERAL - Review of Systems Review Of Systems: See Below Free Text/Narrative/Comment: In addition to that documented in the HPI above, the additional ROS was obtained: Constitutional: Denies fevers or chills Eyes: Denies vision changes ENMT: Denies sore throat CV: Denies chest pain Resp: Denies SOB GI: Denies vomiting or diarrhea : Denies painful urination MSK: Denies recent trauma Skin: Denies new rashes Neuro: Denies new numbness or tingling or weakness Endocrine: Denies unexpected weight loss Heme: Denies bleeding disorders - Physical Exam Exam: See Below Text/Narrative:: I have reviewed the triage vital signs Const: Well nourished, well developed, appears stated age Eyes: Pupils Equal and reactive to light bilaterally, no conjunctival injection HENT: No signs of trauma or swelling, Neck supple without meningismus CV: Regular Rate Rhythm, Warm, well-perfused extremities RESP: Unlabored respiratory effort GI: soft, non-tender, non-distended, no masses MSK: No gross deformities appreciated Skin: Warm, dry. 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 No pronator drift. Gait normal. [id number] normal. sensation and motor function of extremities intact. Psych: Appropriate mood and affect. Course - Vital Signs Last Recorded V/S: Last Vital Signs Temp 36.5 C 10/24/21 18:52 Pulse 89 10/24/21 18:52 Resp 20 10/24/21 18:52 BP 131/100 H 10/24/21 18:52 Pulse Ox 98 10/24/21 18:52 - Orders/Labs/Meds Meds: Medications Discontinued Medications Generic Name Dose Route Start Last Admin Trade Name Freq PRN Reason Stop Dose Admin Acetaminophen 650 mg 10/24/21 19:11 10/24/21 19:24 Acetaminophen 325 Mg Tab PO 10/24/21 19:12 650 mg NOW ONE Administration Diphenhydramine HCl 25 mg 10/24/21 19:11 10/24/21 19:24 Diphenhydramine 50 Mg/Ml Sdv IM 10/24/21 19:12 25 mg ONETIME ONE Administration Metoclopramide HCl 10 mg 10/24/21 19:11 10/24/21 19:23 Metoclopramide 10 Mg/2 Ml Sdv IM 10/24/21 19:12 10 mg ONETIME ONE Administration Departure - Departure Time of Disposition: 20:21 Disposition: Home, Self-Care 01 Clinical Impression: Tension-type headache - Discharge Information Prescriptions: Ondansetron [Zofran ODT] 4 mg PO Q6H PRN #10 tab.dis PRN Reason: Nausea Instructions: Tension Headache, Adult, [id number] Referrals: Liza Bush PA-C [Primary Care Provider] - Forms: ED Department Discharge Sepsis Event Note (ED) - Evaluation Sepsis Screening Result: No Definite Risk - Focused Exam Vital Signs: Vital Signs Temp Pulse Resp BP Pulse Ox 10/24/21 18:52 36.5 C 89 20 131/100 H 98 - Assessment/Plan Assessment:: Patient is a 30-year-old female presenting with headache. Differential diagnosis considered for this patient includes subarachnoid hemorrhage, meningitis, temporal arteritis, encephalitis. Neurologic exam completely normal. Patient not demonstrating any neck stiffness. At this point, patient felt better after pain medication in the emergency room. Patient will be discharged home with appropriate return precautions. All questions were addressed and answered. Patient agrees with plan of care.
== END 2021-10-24 20:30 | disposition home or self-care (01) ==
LOC: JD.ED 17:47
DX: G44.209 Tension-type headache, unspecified, not intractable (principal); I10 Essential (primary) hypertension; E11.9 Type 2 diabetes mellitus without complications; E66.9 Obesity, unspecified; Z68.43 Body mass index [BMI] 50.0-59.9, adult; Z79.84 Long term (current) use of oral hypoglycemic drugs; Z72.0 Tobacco use
CPT/HCPCS: 96372; 99283; A9270; J1200; J2765

== ENCOUNTER 2022-01-17 15:25 | Emergency (ER) | payer MEDICAID ==
[2022-01-17 15:46] VITALS: BP 156/99; PULSE 83
[2022-01-17] MEDS ORDERED: Sodium Chloride 0.9% 10 ML Syringe FLUSH PRN (15:59)
[2022-01-17] MEDS ORDERED: Metoclopramide 10 MG/2 ML SDV IVPUSH ONE (16:00)
[2022-01-17] MEDS ORDERED: diphenhydrAMINE 50 MG/ML SDV IVPUSH ONE (16:00)
[2022-01-17] MEDS ORDERED: Ketorolac 30 MG/ML SDV IVPUSH ONE (16:00)
== END 2022-01-17 17:30 | disposition home or self-care (01) ==
LOC: JD.ED 15:25
DX: R07.89 Other chest pain (principal); R51.9 Headache, unspecified; I10 Essential (primary) hypertension; E11.9 Type 2 diabetes mellitus without complications; E66.9 Obesity, unspecified; Z68.43 Body mass index [BMI] 50.0-59.9, adult; Z79.84 Long term (current) use of oral hypoglycemic drugs; Z72.0 Tobacco use
CPT/HCPCS: 36415; 70450; 80053; 84484; 85025; 86140; 93005; 96374; 96375; 99285; J1200; J1885; J2765

== ENCOUNTER 2022-05-21 15:32 | Emergency (ER) | payer MEDICAID ==
[2022-05-21 15:47] VITALS: BP 132/66; PULSE 85
[2022-05-21 17:28] LABS: CORONAVIRUS COVID-19 NAA NEGATIVE (NEGATIVE)
[2022-05-21] MEDS ORDERED: Ketorolac 60 MG/2 ML SDV IM ONE (17:40)
[2022-05-21] MEDS ORDERED: Orphenadrine 100 MG Tab.ER PO ONE (17:40)
== END 2022-05-21 17:54 | disposition home or self-care (01) ==
LOC: JD.ED 15:32
DX: R07.89 Other chest pain (principal); M62.838 Other muscle spasm; R05.9 Cough, unspecified; I10 Essential (primary) hypertension; E11.9 Type 2 diabetes mellitus without complications; E66.9 Obesity, unspecified; F17.210 Nicotine dependence, cigarettes, uncomplicated; Z79.84 Long term (current) use of oral hypoglycemic drugs; Z79.899 Other long term (current) drug therapy
CPT/HCPCS: 0240U; 36415; 71046; 80053; 85025; 86140; 96372; 99285; A9270; J1885

== ENCOUNTER 2023-08-19 06:40 | Emergency (ER) | payer SELFPAY ==
[2023-08-19 06:50] VITALS: PULSE 92
[2023-08-19 07:27] VITALS: BP 156/122
== END 2023-08-19 07:39 | disposition home or self-care (01) ==
LOC: JD.ED 06:40
DX: R06.00 Dyspnea, unspecified (principal); R09.81 Nasal congestion; F17.210 Nicotine dependence, cigarettes, uncomplicated; E11.9 Type 2 diabetes mellitus without complications; Z86.16 Personal history of COVID-19; Z79.84 Long term (current) use of oral hypoglycemic drugs
CPT/HCPCS: 99283

== ENCOUNTER 2024-02-18 19:30 | Emergency (ER) | payer MEDICAID ==
[2024-02-18 21:23] LABS: CORONAVIRUS COVID-19 NAA NEGATIVE (NEGATIVE); INFLUENZA A NAA NEGATIVE (NEGATIVE); RESPIRATORY SYNCYTIAL VIR NAA NEGATIVE (NEGATIVE)
[2024-02-18 23:19] VITALS: BP 125/84; PULSE 94
== END 2024-02-18 22:01 | disposition home or self-care (01) ==
LOC: JD.ED 19:30
DX: J06.9 Acute upper respiratory infection, unspecified (principal); E11.9 Type 2 diabetes mellitus without complications; Z86.16 Personal history of COVID-19; Z79.84 Long term (current) use of oral hypoglycemic drugs; Z79.899 Other long term (current) drug therapy
CPT/HCPCS: 0241U; 71046; 87651; 99283

== ENCOUNTER 2024-07-18 01:48 | Emergency (ER) | payer MEDICAID ==
[2024-07-18 02:08] VITALS: BP 138/90; PULSE 105
[2024-07-18] MEDS ORDERED: Ondansetron 4 MG/2 ML SDV IVPUSH ONE (02:14)
[2024-07-18] MEDS ORDERED: Sodium Chloride 0.9% 10 ML Syringe FLUSH PRN (02:14)
[2024-07-18 02:50] LABS: BASOPHILS ABSOLUTE AUTO 0.1 K/mm3 (0.0-0.2); BASOPHILS PERCENT AUTO 0.6 % (0.0-1.0); EOSINOPHILS ABSOLUTE AUTO 0.2 K/mm3 (0.0-0.4); EOSINOPHILS PERCENT AUTO 1.7 % (0.0-6.0); HEMATOCRIT 39.4 % (37.0-47.0); HEMOGLOBIN 12.3 gm/dl (12.0-16.0); IMMATURE GRAN ABSOLUTE AUTO 0.05 K/mm3 (0.00-0.05); IMMATURE GRAN PERCENT AUTO 0.5 % (0.0-0.4); LYMPHOCYTES ABSOLUTE AUTO 3.7 K/mm3 (1.0-4.8); LYMPHOCYTES PERCENT AUTO 35.6 % (24.0-44.0); MEAN CORPUSCULAR HEMOGLOBIN 23.7 pg (28.0-32.0); MEAN CORPUSCULAR HGB CONC 31.2 g/dl (32.0-36.0); MEAN CORPUSCULAR VOLUME 76.1 fl (83.0-99.0); MEAN PLATELET VOLUME 9.8 fl (9.4-12.3); MONOCYTES ABSOLUTE AUTO 0.5 K/mm3 (0.0-0.8); MONOCYTES PERCENT AUTO 4.9 % (0.0-8.0); NEUTROPHILS ABSOLUTE AUTO 5.8 K/mm3 (1.8-7.7); NEUTROPHILS PERCENT AUTO 56.7 % (41.0-71.0); PLATELET COUNT,PLT 394 K/mm3 (150-400); RED BLOOD CELL COUNT 5.18 M/mm3 (4.10-5.30); WHITE BLOOD CELL COUNT,WBC 10.24 K/mm3 (3.9-11.3)
[2024-07-18 03:11] LABS: CORONAVIRUS COVID-19 NAA NEGATIVE (NEGATIVE); INFLUENZA A NAA NEGATIVE (NEGATIVE); RESPIRATORY SYNCYTIAL VIR NAA NEGATIVE (NEGATIVE)
[2024-07-18 03:11] LABS: A/G RATIO 0.7 (1-2); ALBUMIN 3.1 g/dl (3.4-5.0); BILIRUBIN TOTAL 0.2 mg/dL (0.2-1.0); BUN/CREATININE RATIO 15.6 (14-18); C-REACTIVE PROTEIN 1.01 mg/dL (<0.30); CALCIUM 8.9 mg/dL (8.5-10.1); CREATININE 0.9 mg/dL (0.55-1.02); EST CRCL DRUG DOSING (CG) 77.49 mL/min; MAGNESIUM 1.7 mg/dL (1.8-2.4); PROTEIN TOTAL,TP 7.4 g/dl (6.4-8.2)
[2024-07-18] MEDS ORDERED: Ondansetron 4 MG/2 ML SDV ONE (03:41)
== END 2024-07-18 04:23 | disposition home or self-care (01) ==
LOC: JD.ED 01:48
DX: B34.9 Viral infection, unspecified (principal); F17.210 Nicotine dependence, cigarettes, uncomplicated; E13.9 Other specified diabetes mellitus without complications; Z86.16 Personal history of COVID-19; Z79.84 Long term (current) use of oral hypoglycemic drugs; Z79.899 Other long term (current) drug therapy
CPT/HCPCS: 0241U; 36415; 80053; 80307; 83735; 85025; 86140; 99284

== ENCOUNTER 2024-08-23 21:13 | Emergency (ER) | payer MEDICAID ==
[2024-08-23] MEDS: Albuterol/Ipratropium 3.0-0.5 MG/3 ML Neb Soln NEB ONE (22:40)
[2024-08-23] MEDS: Levofloxacin 750 MG Tab PO SCH (22:49)
[2024-08-23 22:53] VITALS: BP 132/89; PULSE 91
== END 2024-08-23 22:51 | disposition home or self-care (01) ==
LOC: JD.ED 21:13
DX: J44.1 Chronic obstructive pulmonary disease with (acute) exacerbation (principal); E11.9 Type 2 diabetes mellitus without complications; Z86.16 Personal history of COVID-19; Z79.84 Long term (current) use of oral hypoglycemic drugs; Z79.899 Other long term (current) drug therapy
CPT/HCPCS: 71045; 87635; 87651; 94640; 99285; A9270; J7620-GY; U0002

== ENCOUNTER 2024-10-28 20:05 | Emergency (ER) | payer MEDICAID ==
[2024-10-28 20:14] VITALS: PULSE 85
[2024-10-28] MEDS: Metoclopramide 10 MG/2 ML SDV IVPUSH ONE (20:54)
[2024-10-28] MEDS: Sodium Chloride 0.9% 1,000 ML IV ONE (20:54)
[2024-10-28 20:59] LABS: BASOPHILS ABSOLUTE AUTO 0.1 K/mm3 (0.0-0.2); BASOPHILS PERCENT AUTO 0.7 % (0.0-1.0); EOSINOPHILS ABSOLUTE AUTO 0.1 K/mm3 (0.0-0.4); EOSINOPHILS PERCENT AUTO 1.4 % (0.0-6.0); HEMATOCRIT 39.8 % (37.0-47.0); HEMOGLOBIN 12.7 gm/dl (12.0-16.0); IMMATURE GRAN ABSOLUTE AUTO 0.02 K/mm3 (0.00-0.05); IMMATURE GRAN PERCENT AUTO 0.2 % (0.0-0.4); LYMPHOCYTES ABSOLUTE AUTO 3.7 K/mm3 (1.0-4.8); LYMPHOCYTES PERCENT AUTO 37.3 % (24.0-44.0); MEAN CORPUSCULAR HEMOGLOBIN 23.9 pg (28.0-32.0); MEAN CORPUSCULAR HGB CONC 31.9 g/dl (32.0-36.0); MEAN PLATELET VOLUME 10.9 fl (9.4-12.3); MONOCYTES ABSOLUTE AUTO 0.5 K/mm3 (0.0-0.8); MONOCYTES PERCENT AUTO 5.4 % (0.0-8.0); NEUTROPHILS ABSOLUTE AUTO 5.5 K/mm3 (1.8-7.7); PLATELET COUNT,PLT 271 K/mm3 (150-400); RED BLOOD CELL COUNT 5.31 M/mm3 (4.10-5.30); WHITE BLOOD CELL COUNT,WBC 9.99 K/mm3 (3.9-11.3)
[2024-10-28 22:02] LABS: SLIDE REVIEW ABNORMAL SMEAR
[2024-10-28] MEDS: Pseudoephedrine 30 MG Tab PO ONE (22:03)
[2024-10-28 22:55] VITALS: BP 135/85
== END 2024-10-28 22:56 | disposition home or self-care (01) ==
LOC: JD.ED 20:05
DX: J06.9 Acute upper respiratory infection, unspecified (principal); E11.9 Type 2 diabetes mellitus without complications; Z86.16 Personal history of COVID-19; Z79.84 Long term (current) use of oral hypoglycemic drugs; Z79.899 Other long term (current) drug therapy
CPT/HCPCS: 36415; 71046; 85025; 87428; 96361; 96374; 99285; A9270; J2765; J7030

== ENCOUNTER 2024-10-29 23:57 | Emergency (ER) | payer MEDICAID ==
[2024-10-30 00:17] VITALS: BP 153/107; PULSE 119
[2024-10-30] MEDS ORDERED: Sodium Chloride 0.9% 1,000 ML IV ONE (01:01)
[2024-10-30] MEDS ORDERED: Sodium Chloride 0.9% 10 ML Syringe FLUSH PRN (01:01)
[2024-10-30] MEDS ORDERED: cefTRIAXone 1 GM in Sodium Chloride 0.9% 50 ML IV ONE (01:02)
[2024-10-30] MEDS ORDERED: cefTRIAXone 1 GM Vial IVPUSH ONE (01:15)
[2024-10-30 01:30] LABS: BASOPHILS ABSOLUTE AUTO 0.1 K/mm3 (0.0-0.2); BASOPHILS PERCENT AUTO 0.7 % (0.0-1.0); EOSINOPHILS ABSOLUTE AUTO 0.2 K/mm3 (0.0-0.4); EOSINOPHILS PERCENT AUTO 1.5 % (0.0-6.0); HEMATOCRIT 39.5 % (37.0-47.0); HEMOGLOBIN 12.3 gm/dl (12.0-16.0); IMMATURE GRAN ABSOLUTE AUTO 0.03 K/mm3 (0.00-0.05); IMMATURE GRAN PERCENT AUTO 0.3 % (0.0-0.4); LYMPHOCYTES ABSOLUTE AUTO 3.4 K/mm3 (1.0-4.8); LYMPHOCYTES PERCENT AUTO 29.3 % (24.0-44.0); MEAN CORPUSCULAR HEMOGLOBIN 23.6 pg (28.0-32.0); MEAN CORPUSCULAR HGB CONC 31.1 g/dl (32.0-36.0); MEAN CORPUSCULAR VOLUME 75.8 fl (83.0-99.0); MEAN PLATELET VOLUME 10.1 fl (9.4-12.3); MONOCYTES ABSOLUTE AUTO 0.6 K/mm3 (0.0-0.8); MONOCYTES PERCENT AUTO 5.5 % (0.0-8.0); NEUTROPHILS ABSOLUTE AUTO 7.2 K/mm3 (1.8-7.7); NEUTROPHILS PERCENT AUTO 62.7 % (41.0-71.0); RED BLOOD CELL COUNT 5.21 M/mm3 (4.10-5.30); WHITE BLOOD CELL COUNT,WBC 11.46 K/mm3 (3.9-11.3)
[2024-10-30 01:45] LABS: PLATELET COUNT,PLT 389 K/mm3 (150-400)
[2024-10-30 01:53] LABS: A/G RATIO 0.7 (1-2); ALBUMIN 3.3 g/dl (3.4-5.0); ANION GAP 11.6 (5-15); BILIRUBIN TOTAL 0.2 mg/dL (0.2-1.0); BUN/CREATININE RATIO 12.3 (14-18); CREATININE 1.3 mg/dL (0.55-1.02); EST CRCL DRUG DOSING (CG) 55.9 mL/min; MAGNESIUM 1.7 mg/dL (1.8-2.4); POTASSIUM,K 3.6 mEq/L (3.5-5.1)
[2024-10-30] MEDS: Amoxicillin/Clavulanate K 875-125 MG Tab PO ONE (02:39)
== END 2024-10-30 02:52 | disposition home or self-care (01) ==
LOC: JD.ED 23:57
DX: J32.9 Chronic sinusitis, unspecified (principal); I10 Essential (primary) hypertension; R51.9 Headache, unspecified; R04.0 Epistaxis; E11.9 Type 2 diabetes mellitus without complications; Z86.16 Personal history of COVID-19; Z79.51 Long term (current) use of inhaled steroids; Z79.84 Long term (current) use of oral hypoglycemic drugs; Z79.899 Other long term (current) drug therapy
CPT/HCPCS: 36415; 70450; 80053; 83735; 85025; 99284; A9270; 99283